=== PATIENT | male | born 1945 | race Caucasian/White ===

== ENCOUNTER 2018-03-15 16:34 | Emergency (ER) | payer MEDICARE ==
[2018-03-15 17:12] LABS: Hemoglobin 10.1 g/dL (14.0-18.0); Mean Corpuscular HGB CONC 33.5 g/dL (32.0-36.0); Mean Corpuscular Hemoglobin 31.9 pg (27.0-31.0); Mean Platelet Volume 5.9 fL (7.4-10.4); Platelet Count 418 thou/uL (130-400); RBC Distribution Width 14.1 % (11.5-14.5); Red Blood Cell (RBC) Count 3.17 mill/uL (4.70-6.10); White Blood Cell (WBC) Count 10.3 thou/uL (4.8-10.8)
[2018-03-15 17:32] LABS: Band 5 % (5-11); Lymphocytes 5 % (21-51); MDiff Complete? YES; Monocytes 3 % (0-10); Neutrophil 87 % (42-75); Ovalocytes SLIGHT = 2-5 cells (100X) (0-1/hpf); PLT Morphology Comment Appears Increased; Polychromasia SLIGHT = 2-3 cells (100X) (0-2/hpf); Schistocytes SLIGHT = 2-5 cells (100X) (0-1/hpf)
[2018-03-15 17:33] LABS: ALT (SGPT) 10 U/L (8-55); AST (SGOT) 26 U/L (5-34); Albumin 2.9 g/dL (3.4-4.8); Alkaline Phosphatase 169 U/L (40-150); Anion Gap 11 mmol/L (10-20); BUN (Urea Nitrogen) 15 mg/dL (8.4-25.7); Bilirubin, Total 0.3 mg/dL (0.2-1.2); CK (CPK) 39 U/L (30-200); Calc. Creatinine Clearance 0 mL/min (70-130); Calcium 8.8 mg/dL (7.8-10.44); Carbon Dioxide 25 mmol/L (23-31); Chloride 97 mmol/L (98-107); Estimated GFR-MDRD Greater than 90; Globulin 2.8 g/dL (2.4-3.5); Glucose 269 mg/dL (83-110); Potassium 4.3 mmol/L (3.5-5.1); Protein, Total 5.7 g/dL (5.8-8.1); Sodium 129 mmol/L (136-145)
[2018-03-15 17:38] LABS: CKMB 0.8 ng/mL (0-6.6); Troponin I Less than 0.010 ng/mL (< 0.028)
[2018-03-15 19:14] LABS: Bilirubin Negative (Negative); Blood, Urine Negative (Negative); Clarity CLEAR (Clear); Glucose, Urine (Dipstick) 250 mg/dL (Negative); Leukocyte Negative (Negative); Nitrite Negative (Negative); Protein, Urine (Dipstick) Negative (Neg-Trace); Specific Gravity, Urine 1.014 (1.002-1.036); Urobilinogen 0.2 mg/dL (0.2-1.0); pH, Urine 7.5 (5.0-9.0)
--- NOTE | 2018-03-15 19:14 | CT ---
CT BRAIN WITHOUT CONTRAST: HISTORY: Dizziness. COMPARISON: None available. FINDINGS: There are moderate microvascular ischemic changes, chronic. Mild ex vacuo dilatation of the extraaxi al CSF spaces and ventricular system. No acute hemorrhage or infarct. The calvarium is intact. The paranasal sinuses and mastoids are kelly ar. Old bilateral lacunar infarcts. IMPRESSION: Chronic changes. No acute intracranial hemorrhage. POS: [facility]
--- NOTE | 2018-03-15 19:17 | RAD ---
CHEST ONE VIEW: HISTORY: Dizziness. COMPARISON: None. FINDINGS: There is abnormal confluent opacity in the right upper lobe. The remainder of the lungs appears rela tively clear. The cardiac silhouette and mediastinal contour are within normal limits. IMPRESSION: Confluent opacity in the right upper lobe, concerning for possible infection. Followup after treatme nt is recommended. POS: [facility]
== END 2018-03-15 20:50 | disposition home or self-care (01) ==
LOC: ERS 16:34
DX: R42 Dizziness and giddiness (principal); I25.2 Old myocardial infarction; E10.9 Type 1 diabetes mellitus without complications; E78.5 Hyperlipidemia, unspecified; I10 Essential (primary) hypertension; F41.9 Anxiety disorder, unspecified; Z79.899 Other long term (current) drug therapy; Z79.4 Long term (current) use of insulin; Z79.82 Long term (current) use of aspirin
CPT/HCPCS: 36415; 70450; 71045; 80053; 81003; 82553; 83690; 84443; 84484; 85025; 93005; 94760

== ENCOUNTER 2018-03-24 12:54 | Outpatient (CLI) | payer MEDICARE ==
--- NOTE | 2018-03-24 15:35 | HP ---
DATE OF SERVICE: 03/24/2018 HISTORY OF PRESENT ILLNESS: Mr. Patrice Melo is a very pleasant 72-year-old gentleman accompan ied by his and daughter, who [facility] for evaluation of bilateral lower extr emity lymphedema. The patient states that he has had lymphedema for several years. He states that [facility] physicians have recommended compression garments. He states that he is "claustrophobic" and therefore is unable to tolerate compression garments or the application of wraps to his lower extremi ties. The patient was referred to the [facility] by Dr. Sotne. PAST MEDICAL HISTORY: 1. Hypertension. 2. Diabetes mellitus. 3. Coronary artery disease. 4. Osteoarthritis. PAST SURGICAL HISTORY: 1. Coronary artery bypass grafting x5. 2. Bilateral knee replacements. 3. Incision and drainage/wound VAC placement for left lower leg abscess. 4. Tonsillectomy. 5. Lipoma removal from back. 6. Multiple eye surgeries. 7. Oral surgeries. MEDICATIONS: 1. Enalapril. 2. Norvasc. 3. Finasteride. 4. Atorvastatin. 5. Tizanidine. 6. Aspirin. 7. Coenzyme Q10. 8. Multivitamin. 9. Ultram. 10. Aspercreme. 11. Humulin 70/30. 12. Regular insulin as needed. ALLERGIES: HEPARIN and BETA BLOCKERS. SOCIAL HISTORY: Negative for tobacco use. The patient admits to the social consumption of alcohol i n the past. FAMILY HISTORY: Significant for coronary artery disease. The patient states that his father was elle gnosed with coronary artery disease. Family history is also significant for diabetes mellitus. The patient states that he has multiple relatives on the maternal and paternal sides of his family who we re diagnosed with diabetes mellitus. PHYSICAL EXAMINATION: VITAL SIGNS: Temperature 98.1, pulse 98, respirations 19, blood pressure 138/76. Accu-Chek 132. GENERAL: A 72-year-old gentleman sitting on chair in examination room, in no acute distress. HEENT: Normocephalic, atraumatic. NECK: No nuchal rigidity. CHEST: Clear to auscultation. CARDIAC: Regular rate and rhythm. ABDOMEN: Soft. EXTREMITIES: No open wounds are present over the right or left lower legs. A dorsalis pedis pulse i s palpable on the left. A dorsalis pedis pulse is not palpable on the right. No cellulitis of the r ight or left lower extremity is present. Erythema of the right and left lower legs is present and ap pears to be secondary to stasis changes as opposed to an infectious process. No maceration of the sk in of the right or left lower leg is present. Lymphedema of the right and left lower extremities is present. Circumferences of the right lower extremity at the ankle, calf and knee are 26 cm, 39.50 cm , and 38 cm. Circumferences of the left lower extremity at the ankle, calf and knee are 28 cm, 41 cm , and 41 cm. ASSESSMENT AND PLAN: 1. Lymphedema tarda. Arrangements will be made for the initiation of in-home lymphedema therapy. I will see Mr. Melo again in 4 weeks. At this time, arrangements will continue for the acquisit ion of a pneumatic pump. The patient and his family understand and are in agreement with the [facility] treatment plan. 2. Hypertension. 3. Diabetes mellitus. The patient's Accu-Chek in clinic today is 132. 4. Coronary artery disease. 5. Arthritis.
== END 2018-03-24 12:55 | disposition home or self-care (01) ==
LOC: WCC 12:54
PROVIDERS: ATTEND Family Medicine
DX: I89.0 Lymphedema, not elsewhere classified (principal); E11.9 Type 2 diabetes mellitus without complications; I25.10 Atherosclerotic heart disease of native coronary artery without angina pectoris; M19.90 Unspecified osteoarthritis, unspecified site; I10 Essential (primary) hypertension
CPT/HCPCS: 97602; 99203; G0463

== ENCOUNTER 2018-05-05 16:41 | Inpatient (IN) | payer MEDICARE ==
[~2018-05-05 16:41] MED LIST: ISOVUE-370 76%-LOCM 1 ML ONE
[2018-05-05 17:58] LABS: #Monocytes 1.2 thou/uL (0.11-0.59); #Neutrophils 11.4 thou/uL (1.40-6.50); %Basophils 0.2 % (0.0-1.0); %Eosinophils 0.2 % (0.0-10.0); %Lymphocytes 7.6 % (21.0-51.0); %Monocytes 8.6 % (0.0-10.0); %Neutrophils 83.5 % (42.0-75.0); Hemoglobin 10.3 g/dL (14.0-18.0); Mean Corpuscular HGB CONC 33.2 g/dL (32.0-36.0); Mean Corpuscular Hemoglobin 32.5 pg (27.0-31.0); Mean Corpuscular Volume 97.9 fL (78.0-98.0); Mean Platelet Volume 6.2 fL (7.4-10.4); Platelet Count 441 thou/uL (130-400); RBC Distribution Width 14.9 % (11.5-14.5); Red Blood Cell (RBC) Count 3.16 mill/uL (4.70-6.10); White Blood Cell (WBC) Count 13.6 thou/uL (4.8-10.8)
[2018-05-05 18:23] LABS: ALT (SGPT) 11 U/L (8-55); AST (SGOT) 12 U/L (5-34); Albumin 2.6 g/dL (3.4-4.8); Alkaline Phosphatase 174 U/L (40-150); Anion Gap 11 mmol/L (10-20); BUN (Urea Nitrogen) 19 mg/dL (8.4-25.7); Bilirubin, Total 0.6 mg/dL (0.2-1.2); Calc. Creatinine Clearance 0 mL/min (70-130); Calcium 8.5 mg/dL (7.8-10.44); Carbon Dioxide 23 mmol/L (23-31); Chloride 100 mmol/L (98-107); Estimated GFR-MDRD Greater than 90; Globulin 2.6 g/dL (2.4-3.5); Glucose 146 mg/dL (83-110); Lipase Less than 4 U/L (8-78); Magnesium 1.6 mg/dL (1.6-2.6); Potassium 3.4 mmol/L (3.5-5.1); Protein, Total 5.2 g/dL (5.8-8.1); Sodium 131 mmol/L (136-145)
[2018-05-05] MEDS ORDERED: Ketorolac Tromethamine 30 MG/ML VIAL ONE (19:51)
--- NOTE | 2018-05-05 19:56 | CT ---
ABDOMEN CT WITH CONTRAST PELVIC CT WITH CONTRAST 05/05/18 HISTORY: Abdominal pain. Extensive issues with the colon. Colon is no longer operable. Patient has been recomm ended to be placed on hospice. COMPARISON: None. TECHNIQUE: An abdomen and pelvic CT are performed with IV contrast. Coronal reformatted images are submitted for interpretation. FINDINGS: ABDOMEN CT: 1 x 0.8 cm nodule in the middle lobe and 0.7 x 0.6 and 0.5 x 0.8 cm in the left lower lobe. Heart size is normal. No pericardial fluid. The descending thoracic aorta and abdominal aorta demonst rate atherosclerosis. No aneurysm. No periaortic fat stranding. Intra and extrahepatic portal vein is patent. Unremarkable gallbladder. Symmetric attenuation of psoas muscles. Symmetric enhancement of the kidneys. No obstructive uropathy . No gastrohepatic, retrocrural or periportal lymphadenopathy. The liver, spleen, pancreas, and left adrenal gland are unremarkable. There appears to be a nodule as sociated with the right adrenal gland measuring 1.2 x 1.1 cm. Limited evaluation of the alimentary canal due to lack of oral contrast. Hyperdense material in the c olon is nonspecific and may represent previously ingested material. Grossly unremarkable gastric muco sa and duodenum. Multiple small bowel loops are identified. Some of which have a slightly prominent d iameter. Significance is uncertain in the setting of extensive fecal material in the colon. Partial o bstructive process cannot be excluded. Ileocecal junction is grossly unremarkable. There is extensive fecal material and hyperdensity in the cecum, ascending colon, proximal transverse colon. there is a ir in what appears to be the nondependent portion of the colon. Possibility of pneumatosis involving the cecum cannot be completely excluded. There is hyperdense material in the transverse colon. There is mucosal irregularity involving the distal descending colon and proximal sigmoid colon suggesting p ossible malignancy with an intraluminal extension. There appears to be associated obstruction given t hat the colon proximal to this is somewhat prominent and distal to this area is decompressed. Additio nal abnormal soft tissue densities appear to be present in the sigmoid colon and rectum. Some of thes e densities may represent fecal material. Diffuse edema of the soft tissues is noted. Mildly enlarged retroperitoneal (aortocaval) lymph nodes are suggested and are nonspecific. PELVIC CT: No mass, lymphadenopathy, free air or free fluid. Unremarkable urinary bladder. No lytic or blastic l esions in the osseous structures. IMPRESSION: 1. Possible intraluminal mass/tumor involving the distal descending colon and proximal sigmoid c olon with associated obstruction. 2. Questionable pneumatosis involving the cecum. 3. Multiple lung parenchymal lesions worrisome for metastases. Possible right adrenal metastasis . Results of the study discussed with Dr. Turner 05/05/18 at 6:46 p.m. Code CR POS: [facility]
[2018-05-06] MEDS ORDERED: Sodium Chloride 0.9% 1,000 ML IV SCH (00:08)
[2018-05-06] MEDS ORDERED: Ondansetron ODT 4 MG TAB SL PRN (00:08)
[2018-05-06] MEDS ORDERED: traMADol HCl 50 MG TAB PO PRN (00:08)
[2018-05-06] MEDS ORDERED: Ondansetron HCl/PF 4 MG/2 ML Vial IVP PRN ×2 (00:08→04:01)
[2018-05-06] MEDS ORDERED: Acetaminophen 325 MG TAB PO PRN (00:08)
[2018-05-06 00:13] VITALS: BMI 34.2
[2018-05-06] MEDS ORDERED: Nitroglycerin 0.4 MG TAB (25 Tab Bottle) SL PRN (04:01)
[2018-05-06] MEDS ORDERED: Lorazepam 1 MG TAB PO PRN (04:01)
[2018-05-06] MEDS ORDERED: Mag-Al 1200 mg/1200 mg/30 ML UDCUP PO PRN (04:01)
[2018-05-06] MEDS ORDERED: Senokot 8.6 MG TAB PO PRN (04:01)
[2018-05-06] MEDS ORDERED: traZODone HCl 50 MG TAB PO PRN (04:01)
[2018-05-06] MEDS ORDERED: Bisacodyl 5 MG TAB PO PRN (04:01)
[2018-05-06] MEDS ORDERED: Benzonatate 100 MG CAP PO PRN (04:01)
[2018-05-06] MEDS ORDERED: cloNIDine 0.1 MG TAB PO PRN (04:01)
[2018-05-06] MEDS ORDERED: Calcium Carbonate 500 MG ChewTAB PO PRN (04:01)
[2018-05-06] MEDS ORDERED: Loratadine 10 MG TAB PO PRN (04:01)
[2018-05-06] MEDS ORDERED: Diabetic Tussin 200 MG/10 ML UDCUP PO PRN (04:01)
[2018-05-06] MEDS ORDERED: hydrALAZINE 20 MG/ML VIAL SLOW IVP PRN (04:01)
[2018-05-06] MEDS ORDERED: Dextrose 50% Abboject 50 ML SYRINGE SLOW IVP PRN (04:06)
[2018-05-06] MEDS ORDERED: Dextrose 5% in Water 1,000 ML IV PRN (04:06)
[2018-05-06] MEDS ORDERED: Dextrose 5 %-0.45 % NaCl 1,000 ML IV SCH (05:00)
[2018-05-06 05:24] LABS: #Eosinphils 0.1 thou/uL (0.0-0.7); #Lymphocytes 1.1 thou/uL (1.20-3.40); %Eosinophils 0.7 % (0.0-10.0); %Lymphocytes 11.1 % (21.0-51.0); %Monocytes 9.5 % (0.0-10.0); %Neutrophils 78.7 % (42.0-75.0); Hemoglobin 8.7 g/dL (14.0-18.0); Mean Corpuscular HGB CONC 33.5 g/dL (32.0-36.0); Mean Corpuscular Volume 98.5 fL (78.0-98.0); Mean Platelet Volume 6.4 fL (7.4-10.4); Platelet Count 350 thou/uL (130-400); Red Blood Cell (RBC) Count 2.64 mill/uL (4.70-6.10); White Blood Cell (WBC) Count 10.2 thou/uL (4.8-10.8)
[2018-05-06 05:34] LABS: Anion Gap 13 mmol/L (10-20); BUN (Urea Nitrogen) 18 mg/dL (8.4-25.7); Calc. Creatinine Clearance 116 mL/min (70-130); Calcium 7.9 mg/dL (7.8-10.44); Carbon Dioxide 22 mmol/L (23-31); Chloride 102 mmol/L (98-107); Estimated GFR-MDRD Greater than 90; Glucose 144 mg/dL (83-110); Sodium 134 mmol/L (136-145)
[2018-05-06 05:39] LABS: Potassium 2.9 mmol/L (3.5-5.1)
--- NOTE | 2018-05-06 05:55 | HP ---
DATE OF ADMISSION: 05/06/2018 PRIMARY CARE PHYSICIAN: Dr. Nereyda Stone. CHIEF COMPLAINT: Abdominal distention, diarrhea. HISTORY OF PRESENTING ILLNESS: Mr. Melo is a 72-year-old male with past medical history of elle betes mellitus type 1, history of CVA, currently bed bound as well as history of coronary artery dise ase, dyslipidemia, and hypertension who presented to the emergency room with above-mentioned complain t. History is mainly obtained by the patient himself. He reports that he has chronic diarrhea for one year or more. He reports that he has had multiple co lonoscopies done in various hospitals out of town. Most recently, he was admitted in [place]. He has history of small-bowel obstruction. He reports that he was told that his colon is not worki ng and he was advised to be on hospice. The history is somewhat sketchy in those times. He does not have a data integration architect locally. Per reports, significant weight loss over the course of last 6 m onths. He reports excessive gas and stomach distention. He reports poor appetite. He denies any dy suria, frequency, urgency, or hematuria. He denies any blood in his stools or any black colored stoo ls. He presented to the ER with complaining of some low-grade of lower abdominal pain. Upon presentation , he was tachycardic to 104, otherwise hemodynamically stable. He underwent a CT scan of the abdomen and pelvis, which showed a possible sigmoid colon mass with possible adrenal metastasis and lung met astasis concerning for malignant lesion. He is now being admitted for further evaluation and care. He was given some pain medications and IV fluids in the emergency room. PAST MEDICAL HISTORY: 1. Diabetes mellitus, type 1. 2. History of cerebrovascular accident with bed-bound status. 3. Coronary artery disease and myocardial infarction. 4. Dyslipidemia. 5. Hypertension. 6. Small-bowel obstruction. 7. Chronic diarrhea. 8. Chronic knee pain. 9. Gastroesophageal reflux disease. PAST SURGICAL HISTORY: 1. Coronary artery bypass graft. 2. Bilateral total knee replacement. 3. Lipoma removal from back. 4. Laser surgery for eyes and cataract surgery. PSYCHIATRIC HISTORY: Anxiety. SOCIAL HISTORY: He has no history of drug, tobacco, or alcohol abuse. He lives at home with his wif e who is a primary care provider. CODE STATUS: DO NOT RESUSCITATE, discussed with patient in detail. FAMILY HISTORY: No significant family history of premature coronary artery disease or stroke. REVIEW OF SYSTEMS: A 12-point review of systems was done. It is negative except for those mentioned in the history and physical. LABORATORY DATA: CBC shows WBCs at 13.6 with 83% neutrophils, hemoglobin 10.3. Serum chemistry show s sodium of 131, potassium 3.4, blood sugar 146, alkaline phosphatase 174, total serum protein 5.2. Lipase less than 4. CT scan of the abdomen and pelvis shows possible intraluminal mass/tumor in the distal descending colon and proximal sigmoid colon with associated obstruction. There is questionabl e pneumatosis involving the cecum and multiple lung parenchymal lesions worrisome for metastasis and possible right adrenal metastasis. PHYSICAL EXAMINATION: VITAL SIGNS: Most recent vital signs temperature 98.9, pulse of 95, respirations 18, saturating 97% on room air, blood pressure 117/56. GENERAL: No acute distress. He does appear somewhat malnourished, but otherwise no acute distress. HEENT: Mucous membrane is slightly dry. No oropharyngeal exudate or erythema. Head is normocephali c, atraumatic. Pupils equal and reactive to light and accommodation. Extraocular movement intact. NECK: Supple without any lymphadenopathy, JVD, or bruit. CHEST: Clear to auscultation without any wheezing, rales, or rhonchi. CARDIOVASCULAR: Rate and rhythm is regular without any murmurs, rubs, or gallops. ABDOMEN: Mildly distended and loud bowel sounds with some tenderness in the left lower quadrant. EXTREMITIES: Show chronic extensive lower extremity edema and chronic venostasis changes and lymphed jessica. PSYCHIATRIC: Normal affect. NEUROLOGIC: Nonfocal. IMPRESSION AND PLAN: 1. Abdominal pain and chronic diarrhea. Most likely related to his history of multiple colonic surg eries and seems chronic rather than acute in nature. However, the patient's stool culture sent by [facility] emergency room physician did test positive for Campylobacter. At this time, we will treat him with empiric IV antibiotic with levofloxacin and Flagyl and start him on IV fluids. We will also order F lorastor for him for now. We will also send a Clostridium difficile testing. 2. Sigmoid mass. Possibly carcinoma. We will request Gastroenterology consultation for possible co lonoscopy and/or sigmoidoscopy for biopsy and tissue sample. There is also a question of possible ob struction. The patient will be kept n.p.o. for now and we will continue him on IV fluids. 3. Hypokalemia. We will replace and recheck as needed. 4. Leukocytosis. The patient most likely has abdominal infection. Antibiotics as above. 5. Anemia seems to be chronic, though his baseline is unknown. At this time, it is normocytic in na ture. Suspect chronic losses from either malabsorption through the GI tract or nutritional deficienc ies. 6. History of coronary artery disease, currently stable. We will restart his aspirin and statin as well as his LUDMILA inhibitor in the form of enalapril. 7. Diabetes mellitus, type 1. The patient has hypertension to go into diabetic ketoacidosis. We wi ll put him on scheduled insulin and to prevent hypoglycemia. We will start him on dextrose with norm al saline at this time. Patient is n.p.o., so hypoglycemic protocol will be instituted as well. 8. CODE STATUS: DO NOT RESUSCITATE discussed with the patient. We will consult palliative care [facility] for discussion of long-term goals of care. 9. Deep venous thrombosis and gastrointestinal prophylaxis. DISPOSITION: Mr. Melo is currently stable and is being admitted for further evaluation of the sigmoid mass on chronic symptoms as well as treatment of possible bacterial gastroenteritis. Estimat ed length of stay at this time is at least 2-3 midnights. Further management will depend upon his cl inical course.
[2018-05-06] MEDS ORDERED: metroNIDAZOLE 500 MG in Premix Bag 1 BAG IVPB SCH (06:00)
[2018-05-06] MEDS: Potassium Chloride 40 MEQ in Sodium Chloride 0.9% 250 ML 250 ML IVPB SCH ×2 (06:20→11:54)
[2018-05-06] MEDS ORDERED: Insulin NPH/Reg Insulin Hm 300 UNITS/3 ML VIAL SC SCH (07:30)
[2018-05-06] MEDS: Amlodipine 10 MG TAB PO SCH (08:07)
[2018-05-06] MEDS: Saccharomyces boulardii 250 MG CAP PO SCH (08:08)
[2018-05-06] MEDS: Atorvastatin Calcium 40 MG TAB PO SCH (08:08)
[2018-05-06] MEDS: Aspirin 81 mg Enteric Coated Tablet PO SCH (08:08)
[2018-05-06] MEDS: HYDROcodone/Acetaminophen 10/325 mg Tablet PO SCH ×2 (08:08→20:57)
[2018-05-06] MEDS: Finasteride 5 MG TAB PO SCH (08:08)
[2018-05-06] MEDS: Multivitamin W/ Minerals 1 TAB PO SCH (08:08)
[2018-05-06] MEDS: tiZANidine HCl 4 MG TAB PO SCH ×2 (08:09→20:57)
[2018-05-06] MEDS: Ubidecarenone 50 MG CAP PO SCH (08:09)
[2018-05-06] MEDS ORDERED: Diphenoxylate HCl/Atropine Tablet PO SCH (09:00)
[2018-05-06] MEDS: Famotidine/PF 20 mg/2ml Vial SLOW IVP SCH ×2 (09:08→20:58)
--- NOTE | 2018-05-06 09:26 | PDOC.EVN ---
Event Note - Event Note Event Note: Patient has cdiff and campylobacter. Will make contact precaution, start vanco po and Azithromycin to cover both C.diff and Campylobacter. will get ID on the case.
[2018-05-06] MEDS ORDERED: Azithromycin 500 MG in Sodium Chloride 0.9% 250 ML 250 ML IVPB SCH (10:00)
[2018-05-06 10:18] LABS: Reticulocyte Count 2.9 % (0.5-1.5)
[2018-05-06] MEDS: Insulin NPH/Reg Insulin Hm 300 UNITS/3 ML VIAL SC SCH ×3 (10:35→17:06)
[2018-05-06 11:21] LABS: Folate (Folic Acid) 12.7 ng/mL (7.0-31.4)
[2018-05-06] MEDS ORDERED: GoLYTELY 4,000 ml Bottle PO SCH (16:30)
[2018-05-06] MEDS: D5 0.9% NS w/ 20 mEq KCl 1,000 ML IV SCH (17:10)
--- NOTE | 2018-05-06 20:15 | CON ---
DATE OF CONSULTATION: 05/06/2018 REASON FOR CONSULTATION: Diarrhea, abnormalities in imaging studies of chest and abdomen. HISTORY OF PRESENT ILLNESS: A 72-year-old patient who is originally from [place], [place] and re portedly had to move to [place] with family because he did not have financial means to sustain himself and depends on relatives and basically moves around whenever the relatives moves for job opp ortunity reasons. Initially, about 4 years ago, went to [place] and according to , the pa tient developed then progressively worsening functional impairment associated with his ischemic cardi omyopathy as well as chronic osteoarthrosis, particularly in the knees. The patient has a history of bilateral knee replacements and apparently over the past few months to years, the right knee has dev eloped progressively worsening pain and progressively worsening range of motion, which has led to mar ked reduction in mobility. Concomitantly, over the past at least a year and a half, the patient has noticed chronic diarrhea, flatus, and episodes of abdominal distention. Reportedly had multiple colo noscopies with polypectomies both in [place] as well as in [place]. He states that in [facility] he did not have much in terms of gastrointestinal symptoms and that the colonoscopies had been c arried out for screening reasons. In [place], that is where he developed the symptoms of diar emily, sometimes with bloating and flatulence with then complications including one reported episode o f small-bowel obstruction. He also has a history of some form of chronic right lung abnormality in t he upper lobes, which has been evaluated with bronchoscopy in [place], and they told him that he wa s having aspiration episodes. He does not recall if he had a workup for tuberculosis or fungal illne sses. Here, he moved to this area from [facility] for the same reason as before, where it had been state d specifically the relative moved to the area and he is the only source of financial income. He came to the emergency room in March this year because of lightheadedness, which presented 5 hours before a dmission to the emergency room. He was found to have hypotension with systolic 70s and diastolic in the 40s, and a blood sugar of 78. On arrival, his systolic was 120-150. Reportedly, he was having b alance problems for 4-5 months before arrival in the emergency room and had a history of CVA in 1996. The evaluation at this time in the emergency room demonstrated a blood pressure 140/70, pulse 107, temperature 98.7, O2 sat 97%. The exam was pertinent for poor dentition. Lungs with normal breath s ounds. Heart examination appeared normal. Bowel sounds were hyperactive. EKG showed sinus tachycar elle and some Q-waves. The diagnosis was lightheadedness. He was discharged home on the same medicat ions as before. He had a head CT, which showed no acute findings. The chest showed patchy infiltrat e in the right upper lobe and then this time, he presents with worsening diarrhea. According to the , they decided to [facility] to come and evaluate the patient. The nurse advised them to bring him to the emergency room for evaluation. Also, there is a reported desire on the par t of the patient and the family to be admitted to hospice care and that may had been another reason f or his admission. There had been no headaches. No change in visual symptoms, sore throat, odynophag ia, dysphagia. No vomiting or aspiration. No chest pain or dyspnea. He has chronic diarrhea and ab dominal cramps, some abdominal distention. No bleeding. No genitourinary symptoms. Chronic pain in right knee with marked mobility impairment and range of motion impairment in right knee. PAST MEDICAL HISTORY: Prior CVA, coronary artery disease, myocardial infarction, bypass graft surger y, osteoarthrosis, bilateral knee replacements with chronic impairment of the right knee replacement, and chronic colon issues including multiple colonoscopies and polypectomies, chronic diarrhea of unc ertain etiology with unknown prior workup, chronic right lung infiltrate with prior bronchoscopy, and a diagnosis of aspiration. PAST SURGICAL HISTORY: Also includes lipoma removal, cataract surgery. ALLERGIES: BETA BLOCKERS, HEPARIN. MEDICATIONS AT HOME: Latanoprost, insulin, nystatin, tizanidine, Norvasc, Lomotil, atorvastatin, asp irin, enalapril, finasteride, tramadol. PHYSICAL EXAMINATION: VITAL SIGNS: On arrival, his BP 128/55, pulse 104. After admission, he has remained afebrile. BP 1 02/56, pulse 79, respirations 16, O2 sat 96%. 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 He has bilateral heel deep tissue injuries with pressure ulcerations, w hich according to the developed recently. The patient has a peripheral IV access and is voiding in the urinal. His weight on arrival was 181 pounds. There is no lymphadenopathy. HEENT: The ocular movements are conjugate. Sclerae are white. Conjunctivae are pink. Nasal passag es are patent. Oral cavity with quite a few teeth in place with quite a bit of decay, some gum disea se. NECK: Supple. No jugular vein distention or carotid bruits. LUNGS: With symmetric air entry. HEART: S1, S2 regular rate with a soft aortic murmur. ABDOMEN: Soft with moderate distention. No tenderness. No bladder distention. Bowel sounds are so mewhat increased. EXTREMITIES: The patient has flexion deformity of the right knee with no range of motion because of pain. He did not allow me to palpate the knee because of pain induced by the exam. The left knee ngo s better range of motion and no tenderness on palpation. Dorsalis pedis are difficult to evaluate. The femoral pulse is faintly palpable as well as posterior tibialis. There is on onychodystrophy not ed in all toenails. He is able to faintly wiggle his toes on command. NEUROLOGIC: He is oriented, follows commands, and the memory appears to be preserved. His cognitive function appears to be intact. LABORATORY DATA: White cell count 13.6, hemoglobin 10.3, platelets 441 with 82% neutrophils. The ch emistry analysis showed iron 28, ferritin 193, alkaline phosphatase 174, albumin 2.6. Transaminases normal. Bilirubin 0.6. Lipase is less than 4. We have a urinalysis from March, which showed negativ e nitrite, blood, bilirubin, and urobilinogen. Protein was negative as well. A C. difficile antigen and toxin test demonstrated positive antigen, although toxin was not detected by PCR. The Campyloba cter antigen assay was positive and Shiga toxin negative. The patient had an abdomen and pelvis CT, this was with contrast study. There was a 1 x 0.8 cm nodule in middle lobe and 0.7, 0.6, 0.5, and 0. 8 nodules in the left lower lobe. Heart size is normal. No pericardial fluid. The liver, spleen, a nd pancreas were not remarkable. No oral contrast was administered, so the evaluation of the GI trac t is limited. There was evidence of hyperdense material in the colon, which is nonspecific. Multipl e small bowel loops identified. There was extensive fecal material in the colon with partial obstruc tive process not excluded. Extensive fecal material and hyperdensity in the cecum, ascending colon, and proximal transverse colon. There is possibility of pneumatosis in the cecum. There was a mucosa l irregularity in the distal descending colon and proximal sigmoid colon with suggestion of possible malignancy and intraluminal extension. The pelvic CT showed an unremarkable urinary bladder. No jared stic or lytic lesions in osseous structures. ASSESSMENT: 1. Ischemic cardiomyopathy. 2. Prior cerebrovascular accidents. 3. Severe osteoarthrosis with mobility impairment. 4. Chronic lymphedema with stasis dermatitis in lower extremities. 5. Pressure injury to the right and left heel area due to mobility impairment. 6. Chronic gastrointestinal problems associated with possible motility impairment in the colon, cons tipation mixed with paradoxical diarrhea. Question of malignancy in view of the findings in the imag ing study. 7. Chronic lung changes. DISCUSSION: The Clostridium difficile test shows colonization without actual production of toxin, so I do not think that the diarrhea can be ascribed to Clostridium difficile colitis. Campylobacter an tigen test frequently is false positive and one should be careful in establishing a relationship betw een the results of the patient's Campylobacter tests and his symptoms as well, particularly in view o f the fact that he has had this diarrhea for more than a year and a half. It seems like he does have a motility impairment, may have some element of malabsorption. The issue of malignancy evidently ne eds to be clarified. At this point, the single step that is of the highest importance in clarifying further the patient's issues is to obtain the results of prior evaluations that had been done in [facility] as well as in [place] before we proceed with any further testing at this point in time. Regarding the request for hospice, evidently we will need a diagnosis before the patient can be refe rred to hospice care, so that falls back into the need to obtain records. If the records did not dem onstrate any recent evaluation and/or any specific diagnosis that would justify hospice, for example a malignancy, then one would have to consider repeat endoscopy to evaluate those areas of colon stric ture identified in the CT scan. Regarding the lung lesions, those also need to be evaluated in terms of the prior findings since he had a bronchoscopy study done, and comparison of the imaging findings with prior imaging studies.
[2018-05-06] MEDS: traMADol HCl 50 MG TAB PO PRN (21:04)
--- NOTE | 2018-05-07 02:25 | CON ---
DATE OF CONSULTATION: 05/06/2018 REASON FOR CONSULTATION: Diarrhea, abnormal CAT scan. HISTORY OF PRESENT ILLNESS: Mr. Melo is a 72-year-old gentleman who previously has received ca re in [place], [place] and [place], [place]. He reports he has been having diarrhea for abou t two years now or year and a half. No one has been able to find out why. This seems it may be 4 or 5 years ago, he had a couple of colonoscopies at [facility] or in other facilities in [place] to r emove polyps. At that time, he was having no diarrhea. More recently, he was in [facility] as about 2-3 years ago, he had 2 colonoscopies and polyps removed, but the patient reports the colono scopies were unable to be completed secondary to the patient's difficulty with breathing and Anesthes ia not feeling the patient could remain sedated. Now, he reports he has been having diarrhea for abo ut a year and a half, but he was not having diarrhea when he had his last colonoscopy. At his last h ospitalization in [facility], he states it was last June for what was reported to be a partial obstruc tion in his transverse colon. He stated this got better on its own. Presently, the patient came to the emergency room for worsening diarrhea and decreased oral intake. Apparently, his home health nurse felt he should come to the hospital. The diarrhea has not been no worse in the past years or so. He states he has some vague abdominal discomfort across the whole bot pia of the abdomen. The patient reports he has runny diarrhea about 7 or 8 times per day. Again, he states no one has cleared on why he has that. He has seen Dr. Stone recently as a new physician a nd he was given Imodium. I talked about his previous colonoscopies. His notes that he had to h ave the bowel prep and then 7 or 8 enemas to get cleaned out. Presently, the patient denies any pain . He wants to know why he is having diarrhea. He also notes that he has no bleeding except for some times with hemorrhoids. Also, he notes that he does not have an appetite and really does not have a taste for any food at this point in time. The patient states he has lost weight recently, but he is unsure how much. PAST MEDICAL HISTORY: 1. Type 1 diabetes. 2. CVA with multiple TIAs in the past. He is bedbound now for about the past 6 months, coronary art letty disease, previous myocardial infarction and bypass, dyslipidemia, hypertension, small bowel obstr uction in the past or possible colon obstruction, unclear which. 3. Chronic diarrhea. 4. Chronic knee pain. 5. Reflux. PAST SURGICAL HISTORY: Bypass coronary, bilateral total knee replacement, lipoma, remarkable for Las ik surgery for eyes and cataracts. PSYCHIATRIC HISTORY: Apparently anxiety. SOCIAL HISTORY: No history of drug use, tobacco use or alcohol abuse. Lives at home with his _ ____ to this region. FAMILY HISTORY: Noncontributory. REVIEW OF SYSTEMS: As per HPI. ALLERGIES: BETA BLOCKERS and HEPARIN. CURRENT MEDICATIONS: Presently at home, lansoprazole, Novolin 70/30, Novolin Regular, Nystatin, tiza nidine, amlodipine, Lomotil, atorvastatin, aspirin, enalapril, finasteride, tramadol. PRESENT MEDICATIONS: During the hospital, Maalox, Norvasc, Lipitor, azithromycin, Tessalon, Dulcolax , Tums, Catapres, CoQ10, D5 75 an hour, Lomotil, Vasotec, Pepcid, Proscar, Apresoline, [place], Humulin , Theragran M, Claritin, Ativan, morphine, nitroglycerin, Florastor, tramadol, tizanidine, Desyrel, a nd vancomycin. PHYSICAL EXAMINATION: VITAL SIGNS: Temperature is 99.3, pulse 79, blood pressure 102/56. GENERAL: He is a very ill-appearing male resting in bed. HEENT: Oropharynx without lesions. Some teeth are missing. NECK: Supple, without adenopathy. LUNGS: Clear. HEART: Regular. ABDOMEN: Protuberant. It is nontender. There is no rebound or guarding. There is a midline ventra l hernia and diastasis recti. There is no incarcerated bowel. Bowel sounds are positive. RECTAL: Reveals hemorrhoids internally. There is some fullness, but no overt masses palpated, it is comfortable with the patient. Limits ability to complete the exam, there was noted some impaction. Stool was brown. LABORATORY STUDIES: White count 10.2, hemoglobin is 8.7, MCV is 93. Hemoglobin was 10.3 last night. Platelet count is down from 441 to 350. Retic count is 2.9. Sodium 134, potassium 3.4 and 2.9 thi s morning to be replaced, chloride 100, bicarbonate 23, BUN 19, creatinine 0.7, glucose 147, alkaline phosphatase 174, AST and ALT are 12 and 11. Serum protein is 5.2, albumin is 2.6. TSH 1.07. Magne sium is 1.5, is being replaced. Microbiology: The patient had stool for C. difficile that was posit maria l for antigen negative for toxin. Stool Campylobacter antigen was positive. Shiga toxin negative. CAT scan of abdomen and pelvis was performed last night. I reviewed these films with the radiologi st. There is nodule associated with right adrenal gland. There are a couple of 1 cm to 0.8-0.7 cm l ymph nodes in the lung, hyperdense material in the right colon with some small bowel loops that are m ildly prominent, stool distended right colon. Extensive fecal material in the right colon. There is air in the transverse colon. We have some concern that there could be possibly some pneumatosis in the cecum. In the junction of distal colon and proximal sigmoid, there is an irregular mucosal densi ty, possibly obstructing mass concerning for, that does not appear to be a volvulus air. Otherwise, there is concern for possible metastatic disease in the lung and also the right adrenal gland. ASSESSMENT: 1. Chronic diarrhea. It seems really in talking with the patient and his that this may be over flow diarrhea from constipation even when he has had colonoscopies, they had a difficult time getting his bowels cleaned. He does have a Clostridium difficile toxin positive now, the antigens negative. He shows no signs of sepsis or infection. I do not think he has Clostridium difficile colitis, christopher s far positive Campylobacter. Again, I do not see an acute diarrheal illness here. This is probably a false positive, I would wait for stool culture and I get a fecal leukocyte test. 2. With regard to the possible pneumatosis in the cecal area of the colon, I will review this with adriel alvarez radiologist. The patient does not have a surgical appearing abdomen, but he is chronically ill, m alnourished. Surgery needs to look at this to make sure that he is at risk for ischemia from over-di stention of the cecal area of the colon and I have recommended the Hospitalist they get a surgical co nsultation of colon this afternoon. 3. With regard to the possible obstruction in the sigmoid colon, I think that is real and with the l esions in the lung and the adrenal gland that it makes even more concerned. The patient states he ngo s not had any cancers in the past and he has had colonoscopies, most recent being about 5 years ago, but really that it is unclear what would happen if those seems to he was not able to have even a full exam secondary to respiratory issues with sedation. The differential diagnosis could include mucosal obstruction from malignancy, partial volvulus or even just the appearance obstruction based o n peristalsing on the CAT scan. 3. Electrolyte abnormalities. 4. Diabetes, unclear how well controlled that is. 5. Anemia, chronic, with a normal B12, iron of 28, ferritin of 190. RECOMMENDATIONS: 1. Surgical consultation. 2. Slow prep for colonoscopy. If patient is unable to tolerate a prep, we may have to just perform a sigmoidoscopy to look at the cecal lesion. 3. I want the surgeon to look at him in terms of the question of pneumatosis in the right colon that can become a surgical emergency and obviate any need or move towards a colonoscopy. 4. I would check his stools for fecal lactoferrin and specific culture for Campylobacter not treated with antibiotics at this point in time if his diarrhea is chronic and has not changed acutely, does not appear to be infectious.
[2018-05-07] MEDS: D5 0.9% NS w/ 20 mEq KCl 1,000 ML IV SCH ×3 (02:43→20:31)
[2018-05-07 05:19] LABS: #Eosinphils 0.1 thou/uL (0.0-0.7); #Neutrophils 9.8 thou/uL (1.40-6.50); %Basophils 0.1 % (0.0-1.0); %Eosinophils 1.1 % (0.0-10.0); %Lymphocytes 8.5 % (21.0-51.0); %Monocytes 8.6 % (0.0-10.0); %Neutrophils 81.8 % (42.0-75.0); Hemoglobin 9.1 g/dL (14.0-18.0); Mean Corpuscular HGB CONC 32.2 g/dL (32.0-36.0); Mean Corpuscular Hemoglobin 31.8 pg (27.0-31.0); Mean Corpuscular Volume 98.9 fL (78.0-98.0); Mean Platelet Volume 7.6 fL (7.4-10.4); Platelet Count 312 thou/uL (130-400); Red Blood Cell (RBC) Count 2.87 mill/uL (4.70-6.10)
[2018-05-07 05:46] LABS: Anion Gap 12 mmol/L (10-20); BUN (Urea Nitrogen) 13 mg/dL (8.4-25.7); Calc. Creatinine Clearance 141 mL/min (70-130); Calcium 7.5 mg/dL (7.8-10.44); Carbon Dioxide 22 mmol/L (23-31); Chloride 107 mmol/L (98-107); Estimated GFR-MDRD Greater than 90; Glucose 143 mg/dL (83-110); Magnesium 1.3 mg/dL (1.6-2.6); Sodium 138 mmol/L (136-145)
[2018-05-07 05:48] LABS: Potassium 2.9 mmol/L (3.5-5.1)
[2018-05-07 07:38] LABS: Magnesium 1.3 mg/dL (1.6-2.6)
[2018-05-07] MEDS: Insulin NPH/Reg Insulin Hm 300 UNITS/3 ML VIAL SC SCH ×3 (07:48→16:49)
[2018-05-07] MEDS: Famotidine/PF 20 mg/2ml Vial SLOW IVP SCH ×2 (07:49→20:26)
[2018-05-07] MEDS: Amlodipine 10 MG TAB PO SCH (07:50)
[2018-05-07] MEDS: tiZANidine HCl 4 MG TAB PO SCH ×2 (07:51→20:26)
[2018-05-07] MEDS: Multivitamin W/ Minerals 1 TAB PO SCH (07:52)
[2018-05-07] MEDS: Saccharomyces boulardii 250 MG CAP PO SCH (07:52)
[2018-05-07] MEDS: Atorvastatin Calcium 40 MG TAB PO SCH (07:52)
[2018-05-07] MEDS: traMADol HCl 50 MG TAB PO PRN ×2 (07:59→14:41)
[2018-05-07] MEDS: Ubidecarenone 50 MG CAP PO SCH (07:59)
[2018-05-07] MEDS ORDERED: Magnesium Citrate 300 ML BOT PO SCH (08:00)
[2018-05-07] MEDS ORDERED: Vancomycin HCl 25 MG/ML Oral PO SCH (09:00)
[2018-05-07] MEDS: HYDROcodone/Acetaminophen 10/325 mg Tablet PO SCH ×2 (09:20→20:28)
--- NOTE | 2018-05-07 09:23 | CON ---
DATE OF CONSULTATION: 05/07/2018 CHIEF COMPLAINT: Chronic diarrhea. HISTORY OF PRESENT ILLNESS: This is a 72-year-old male who I have been asked to see for a potential mass in the left colon. He had a CT scan which showed something in the sigmoid colon, looks like a s tricture. He has had a previous significant workup for this diarrhea, although on his CT here he has got a lot of retained stool in his right colon. He has never been told he had any sort of malignanc y; however, he is new to town and the family present does not know the details of previous hospitaliz ation and workup. Dr. Hinton is planning on at least sigmoidoscopy later today. He denies any abdominal pain today. He is just mostly concerned about diarrhea. PAST MEDICAL HISTORY: Diabetes, CVA, chronic diarrhea. PAST SURGICAL HISTORY: Coronary bypass, knee replacements, lipoma Lasik. SOCIAL HISTORY: No smoking, alcohol or other drugs. REVIEW OF SYSTEMS: Ten system review of systems otherwise negative. ALLERGIES: BETA BLOCKERS, HEPARIN. CURRENT MEDICINES: See list. PHYSICAL EXAMINATION: VITAL SIGNS: Blood pressure is 123/73, pulse 103, respirations 18. HEENT: Sclerae are anicteric. Oropharynx clear. NECK: No lymphadenopathy. CHEST: Clear. HEART: Regular rate and rhythm. ABDOMEN: Soft, nontender, nondistended. EXTREMITIES: No ischemia or edema to extremities. LABORATORY AND X-RAY FINDINGS: White blood cell count is 12, hemoglobin 9, platelet count is 312, cr eatinine is 0.55. CT abdomen and pelvis, possible intraluminal mass distal descending proximal sigmo id questionable pneumatosis of the cecum. ASSESSMENT: 1. Questionable sigmoid mass. 2. Pneumatosis of uncertain etiology, although he has got a lot of retained stool in the colon. He has got no pain. PLAN: Sigmoidoscopy. We will follow if there is an abnormality seen on colonoscopy.
[2018-05-07] MEDS: Finasteride 5 MG TAB PO SCH (09:52)
--- NOTE | 2018-05-07 11:01 | PDOC.PN ---
- Subjective Encounter Start Date: 05/07/18 Encounter Start Time: 11:00 CC: Diarrhea patient seen and examined. States that he is feeling ok. Still having diarrhea. NAD - Objective Resuscitation Status: Resuscitation Status DNR:Do Not Resuscitate MAR Reviewed: Yes Vital Signs & Weight: Vital Signs (12 hours) Temp Pulse Resp BP BP Pulse Ox 05/07/18 08:17 98.8 F 103 H 18 93 L 05/07/18 07:51 123/73 05/07/18 07:50 103 H 123/73 05/07/18 07:35 98.8 F 103 H 18 123/73 93 L 05/07/18 04:40 98.7 F 92 16 146/70 H 92 L Weight Admit Weight 181 lb Weight 181 lb 6.4 oz I&O: 05/06/18 05/07/18 05/08/18 06:59 06:59 06:59 Intake Total 309 6620 Balance 309 6620 Result Diagrams: 05/14/18 03:20 05/14/18 03:20 Additional Labs: Accuchecks 05/07/18 05/06/18 05/06/18 04:50 19:59 16:53 POC Glucose 163 H 95 114 H 05/06/18 11:24 POC Glucose 209 H Phys Exam - Physical Examination Constitutional: NAD HEENT: PERRLA, moist MMs Neck: no JVD, supple Respiratory: no wheezing, no rales, no rhonchi Cardiovascular: RRR, no significant murmur, no rub Gastrointestinal: soft, non-tender, no distention Musculoskeletal: pulses present Neurological: non-focal, normal sensation, moves all 4 limbs Psychiatric: normal affect, A&O x 3 Dx/Plan (1) sigmoid mass Status: Acute Comment: s/p sigmoidoscopy -- per GI masses in the GI ~10cm highly suspicious for malignancy. With lung findings of masses --- Might be metastasis. Surgery consulted for mass removal for both therapeutic and diagnostic purposes. Cardiac consulted for Cardiac clearance. 2D echo has been ordered. From medical stand point will control Glucose & BP. will medically optimize patient. Palliative team should have discussion with family regarding hospice. (2) Pneumatosis coli Code(s): K63.89 - OTHER SPECIFIED DISEASES OF INTESTINE Status: Acute Comment: per surgery will do resection of the sigmoid masses after medical and cardiac clearance. follow with surgery for managent. (3) Diabetes mellitus Code(s): E11.9 - TYPE 2 DIABETES MELLITUS WITHOUT COMPLICATIONS Status: Chronic Comment: increased insulin to 10. will monitor sugars closely (4) Clostridium difficile diarrhea Code(s): A04.72 - ENTEROCOLITIS D/T CLOSTRIDIUM DIFFICILE, NOT SPCF RECUR Status: Chronic Comment: vanco discontinued by GI. Will leave management to GI team (5) Chronic diarrhea of unknown origin Code(s): K52.9 - NONINFECTIVE GASTROENTERITIS AND COLITIS, UNSPECIFIED Status : Acute Comment: due to mass obstructing the rectum. will monitor - Plan DVT proph w/SCDs * . see above Review of Systems - Review of Systems Constitutional: negative: fever, chills, sweats, weakness, malaise, other Eyes: negative: Pain, Vision Change, Conjunctivae Inflammation, Eyelid Inflammation, Redness, Other ENT: negative: Ear Pain, Ear Discharge, Nose Pain, Nose Discharge, Nose Congestion, Mouth Pain, Mouth Swelling, Throat Pain, Throat Swelling, Other Respiratory: negative: Cough, Dry, Shortness of Breath, Hemoptysis, SOB with Excertion, Pleuritic Pain, Sputum, Wheezing Cardiovascular: negative: chest pain, palpitations, orthopnea, paroxysmal nocturnal dyspnea, edema, light headedness, other Gastrointestinal: Diarrhea. negative: Nausea, Vomiting, Abdominal Pain, Constipation, Melena, Hematochezia, Other Genitourinary: negative: Dysuria, Frequency, Incontinence, Hematuria, Retention , Other Musculoskeletal: negative: Neck Pain, Shoulder Pain, Arm Pain, Back Pain, Hand Pain, Leg Pain, Foot Pain, Other Skin: negative: Rash, Lesions, Kel, Bruising, Other Neurological: negative: Weakness, Numbness, Incoordination, Change in Speech, Confusion, Seizures, Other - Medications/Allergies Allergies/Adverse Reactions: Allergies Allergy/AdvReac Type Severity Reaction Status Date / Time Beta-Blockers Allergy Verified 05/06/18 00:24 (Beta-Adrenergic Bloc heparin Allergy Verified 05/06/18 00:24
--- NOTE | 2018-05-07 13:35 | OP ---
DATE OF PROCEDURE: 05/07/2018 SURGEON: Russell Hinton M.D. PREOPERATIVE DIAGNOSES: 1. CAT scan suggesting possible mass at the sigmoid colon, possible mass in the rectum, severe const ipation. Patient admitted with chronic diarrhea and prior history of colon polyps. Details unknown. 2. Anemia. Hemoglobin of 9. 3. Elevated CEA of 18. 4. CAT scan concerning for possible pulmonary metastatic disease. POSTOPERATIVE DIAGNOSES: 1. Extremely poor prep. 2. Polypoid mass with ulceration and necrosis in the rectum. This fills the entire lumen, ____ abou t 10 cm. I did not see a stalk that would permit it to be removed endoscopically. In any event, it looks malignant. Multiple biopsies obtained. 3. Mass near obstructing with inability to pass the colonoscope at about 30 cm circumferential and l arge. Multiple biopsies obtained and submitted to Pathology. 4. The remainder of the colon could not be evaluated secondary to inability to pass the sigmoid mass . RECOMMENDATIONS: Surgical consultation. Both masses will need to be removed at the time of surgery. Surgical consultation already performed by Dr. Maddox. He needs a Cardiology consult to evaluate preoperative risks and optimize any risks therefore. ANESTHESIA: TIVA. PROCEDURE IN DETAIL: After the patient was informed of the risks, benefits, possible complications o f endoscopy including perforation, medications, aspiration, informed consent was obtained. The patie nt was brought to the endoscopy suite where he was sedated in a gradual fashion. Once he was comfort able, a rectal exam was performed revealing poor prep. The endoscope was advanced into the anal ronny l and about 10 cm in proximal rectum a mass was encountered. It was polypoid and loose, but I could not detect a distinct base. It is very soft and friable with areas of necrosis superficially, it is probably well over 8 cm in size. I was able to get the scope to beyond this mass and a second mass w as encountered about 30-40 cm in the sigmoid colon. This mass was unable to be passed. The colon wa s fibrotic and narrowed here. I could see beyond it, but cannot get the scope to pass even with forc ing it a little bit. Multiple biopsies were obtained and submitted to Pathology. The scope was then removed. The patient tolerated the procedure well, he was brought to recovery room in stable condit ion.
[2018-05-07] MEDS: Aspirin 81 mg Enteric Coated Tablet PO SCH (14:37)
[2018-05-07] MEDS ORDERED: PROPOFOL 200 MG/20 ML VIAL ONE (14:48)
[2018-05-07] MEDS ORDERED: PHENYLEPHRINE-NS 100 MCG/ML 10 ML SYRINGE ONE (14:48)
[2018-05-07] MEDS ORDERED: ePHEDrine/0.9% NaCl/PF SYRINGE 50 mg/10 ml ONE (14:48)
[2018-05-07] MEDS: HumaLOG 300 UNITS/3 ML VIAL SC PRN ×2 (16:50→20:27)
--- NOTE | 2018-05-08 02:08 | CON ---
DATE OF CONSULTATION: 05/07/2018 HISTORY: Patrice Melo is a 72-year-old white male who in 2002 had a light heart attack while living in [place], [place] followed by CABG x5. He denies any cardiac problems since that time. He denies any chest discomfort or shortness of breath, although he is essentially bedridden due to problems with his right knee and because of a CVA in the past. Recently, while living in [place], he was admitted and found to have small-bowel obstruction and was told that he should probably be on hospice. He has had stomach distention as well as poor appetite and diarrhea. He has been found to have colonic mass suspicious for cancer and possible lung metastasis. PAST MEDICAL HISTORY: Coronary artery disease, cerebrovascular accident, diabetes, hyperlipidemia, hypertension, small-bowel obstruction, chronic knee pain, GERD. OPERATIONS: Bilateral total knee replacement with the right knee causing a lot of pain, removal of lipoma, and CABG. MEDICATIONS: Amlodipine 10 daily, Ecotrin 81 mg daily, atorvastatin 40 daily, enalapril 20 mg b.i.d., finasteride 5 mg daily, CoQ10 200 mg daily, tizanidine t.i.d. 4 mg b.i.d., tramadol p.r.n. ALLERGIES: HEPARIN. 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 SOCIAL HISTORY: He does not smoke or drink. REVIEW OF SYSTEMS: Twelve-point review of systems is unremarkable except as noted above. PHYSICAL EXAMINATION: VITAL SIGNS: Blood pressure 111/54, pulse of 93. HEENT: PERRL. NECK: Supple. CHEST: Clear. CARDIAC: S1, S2 are normal without any S3, S4, or murmurs. ABDOMEN: Normal bowel sounds and at times high-pitched bowel sounds. Abdomen seems distended. EXTREMITIES: Revealed 1+ arm edema. He also has 1+ lower extremity edema, chronic lymphedema, and venous stasis changes. NEUROLOGIC: Appears intact. LABORATORY DATA: EKG reveals sinus tachycardia with left-axis deviation, right bundle branch block. Hemoglobin 9.1, hematocrit 28.4, white count 12,000, platelets 312,000. Sodium 138, potassium 2.9 with a repeat of 3, chloride 107, carbon dioxide 22, BUN 13, creatinine 0.55. He underwent colonoscopy today. He was found to have a rectal mass as well as a near obstructing mass at 30 cm. Chest x-ray on 03/15/2018 revealed opacity in the right upper lobe. IMPRESSION: 1. Sigmoid and colonic masses suspicious for malignancy. 2. Status post coronary artery bypass graft x5 in 2002 while living in [place]. 3. Hypertension. 4. Diabetes. 5. Hypercholesterolemia. 6. History of cerebrovascular accident. 7. Hypokalemia. 8. Anemia. PLAN: Mr. Melo will undergo echocardiography to assess left ventricular function. Also, he will undergo Lexiscan Cardiolite testing. He is extremely sedentary, essentially bedridden. He does not have any specific cardiac complaints. LAURA
[2018-05-08] MEDS: traMADol HCl 50 MG TAB PO PRN ×2 (05:09→18:18)
--- NOTE | 2018-05-08 09:53 | PRG ---
DATE OF SERVICE: 05/08/2018 SUBJECTIVE: Mr. Melo had colonoscopy by Dr. Hinton yesterday as two masses, one at the rectosi gmoid junction, one up higher in the sigmoid. He is going to need a colectomy for definitive diagnos is and treatment. He is still complaining of diarrhea. He is also n.p.o. this morning and is upset about that. Denies abdominal pain. PHYSICAL EXAMINATION: VITAL SIGNS: Blood pressure is 130/80, pulse 92, respirations 16. He is afebrile. CHEST: Clear. HEART: Regular rate and rhythm. ABDOMEN: Soft, nontender, nondistended. EXTREMITIES: He does have pretty significant peripheral edema upper and lower extremities. LABORATORY DATA: White count 12. His hemoglobin is 9.1 yesterday. ASSESSMENT: Colon mass, multiple. PLAN: Ultimately going to need colon resection if deemed to be a decent candidate after cardiac samiramahad mason, we will follow with you. Probably plan surgery next week one day.
[2018-05-08] MEDS: Amlodipine 10 MG TAB PO SCH (10:38)
[2018-05-08] MEDS: Aspirin 81 mg Enteric Coated Tablet PO SCH (10:38)
[2018-05-08] MEDS: Atorvastatin Calcium 40 MG TAB PO SCH (10:39)
[2018-05-08] MEDS: Multivitamin W/ Minerals 1 TAB PO SCH (10:39)
[2018-05-08] MEDS: Finasteride 5 MG TAB PO SCH (10:39)
[2018-05-08] MEDS: Saccharomyces boulardii 250 MG CAP PO SCH (10:40)
[2018-05-08] MEDS: Ubidecarenone 50 MG CAP PO SCH (10:40)
[2018-05-08] MEDS ORDERED: Regadenoson 0.4 MG/5 ML SYRINGE ONE (10:43)
[2018-05-08] MEDS: D5 0.9% NS w/ 20 mEq KCl 1,000 ML IV SCH ×2 (10:50→18:34)
[2018-05-08] MEDS: HumaLOG 300 UNITS/3 ML VIAL SC PRN ×2 (11:34→11:43)
[2018-05-08] MEDS ORDERED: Dextrose 5% in Water 1,000 ML IV PRN (12:40)
[2018-05-08] MEDS ORDERED: Dextrose 50% Abboject 50 ML SYRINGE SLOW IVP PRN (12:40)
--- NOTE | 2018-05-08 12:43 | PDOC.PN ---
- Subjective Encounter Start Date: 05/08/18 Encounter Start Time: 12:42 Patient seen and examined. Getting ready for Echo. States that he feels well. Have no acute distress. - Objective Resuscitation Status: Resuscitation Status DNR:Do Not Resuscitate MAR Reviewed: Yes Vital Signs & Weight: Vital Signs (12 hours) Temp Pulse Resp BP Pulse Ox 05/08/18 08:00 98.2 F 92 16 93 L 05/08/18 07:57 98.2 F 92 16 130/80 93 L Weight Admit Weight 181 lb Weight 181 lb 6.4 oz I&O: 05/07/18 05/08/18 05/09/18 06:59 06:59 06:59 Intake Total 6620 1300 Balance 6620 1300 Result Diagrams: 05/07/18 04:38 05/07/18 07:06 Additional Labs: Accuchecks 05/08/18 05/08/18 05/07/18 11:31 04:16 20:13 POC Glucose 238 H 163 H 315 H 05/07/18 16:43 POC Glucose 353 H Phys Exam - Physical Examination Constitutional: NAD HEENT: PERRLA, moist MMs Neck: no JVD, supple Respiratory: no wheezing, no rales, no rhonchi Cardiovascular: no significant murmur, no rub Gastrointestinal: soft, non-tender, no distention Musculoskeletal: no edema, pulses present Neurological: non-focal cannot move lower extremities Psychiatric: normal affect, A&O x 3 Deviation from normal: bilateral venous stasis. Dx/Plan (1) sigmoid mass Status: Acute Comment: s/p sigmoidoscopy -- per GI masses in the GI ~10cm highly suspicious for malignancy. With lung findings of masses --- Might be metastasis. Surgery consulted for mass removal for both therapeutic and diagnostic purposes. Cardiac consulted for Cardiac clearance. 2D echo has been ordered. From medical stand point will control Glucose & BP. will medically optimize patient. Palliative team should have discussion with family regarding hospice. (2) Pneumatosis coli Code(s): K63.89 - OTHER SPECIFIED DISEASES OF INTESTINE Status: Acute Comment: per surgery will do resection of the sigmoid masses after medical and cardiac clearance. follow with surgery for managent. (3) Diabetes mellitus Code(s): E11.9 - TYPE 2 DIABETES MELLITUS WITHOUT COMPLICATIONS Status: Chronic Comment: increased insulin to 10. will monitor sugars closely (4) Clostridium difficile diarrhea Code(s): A04.72 - ENTEROCOLITIS D/T CLOSTRIDIUM DIFFICILE, NOT SPCF RECUR Status: Chronic Comment: vanco discontinued by GI. Will leave management to GI team (5) Chronic diarrhea of unknown origin Code(s): K52.9 - NONINFECTIVE GASTROENTERITIS AND COLITIS, UNSPECIFIED Status : Acute Comment: due to mass obstructing the rectum. will monitor (6) Hyperglycemia Code(s): R73.9 - HYPERGLYCEMIA, UNSPECIFIED Status: Acute Comment: will increase insulin then monitor - Plan * . Review of Systems - Review of Systems Constitutional: negative: fever, chills, sweats, weakness, malaise, other Eyes: negative: Pain, Vision Change, Conjunctivae Inflammation, Eyelid Inflammation, Redness, Other ENT: negative: Ear Pain, Ear Discharge, Nose Pain, Nose Discharge, Nose Congestion, Mouth Pain, Mouth Swelling, Throat Pain, Throat Swelling, Other Respiratory: negative: Cough, Dry, Shortness of Breath, Hemoptysis, SOB with Excertion, Pleuritic Pain, Sputum, Wheezing Cardiovascular: negative: chest pain, palpitations, orthopnea, paroxysmal nocturnal dyspnea, edema, light headedness, other Gastrointestinal: Diarrhea. negative: Nausea, Vomiting, Abdominal Pain, Constipation, Melena, Hematochezia, Other Genitourinary: negative: Dysuria, Frequency, Incontinence, Hematuria, Retention , Other Musculoskeletal: negative: Neck Pain, Shoulder Pain, Arm Pain, Back Pain, Hand Pain, Leg Pain, Foot Pain, Other Skin: negative: Rash, Lesions, Kel, Bruising, Other Neurological: negative: Weakness, Numbness, Incoordination, Change in Speech, Confusion, Seizures, Other - Medications/Allergies Allergies/Adverse Reactions: Allergies Allergy/AdvReac Type Severity Reaction Status Date / Time Beta-Blockers Allergy Verified 05/06/18 00:24 (Beta-Adrenergic Bloc heparin Allergy Verified 05/06/18 00:24 Medications: Current Medications Hydrocodone Bitart/Acetaminophen ([place] 10/325) 1 tab PO BID [facility] Last Admin: 05/07/18 20:28 Dose: Not Given Al Hydroxide/Mg Hydroxide (Maalox) 15 ml PO Q4H PRN PRN Reason: Heartburn or Indigestion Amlodipine Besylate (Norvasc) 10 mg PO DAILY [facility] Last Admin: 05/07/18 07:50 Dose: 10 mg Aspirin (Ecotrin) 81 mg PO DAILY [facility] Last Admin: 05/07/18 14:37 Dose: 81 mg Atorvastatin Calcium (Lipitor) 40 mg PO DAILY [facility] Last Admin: 05/07/18 07:52 Dose: 40 mg Benzonatate (Tessalon) 100 mg PO Q4H PRN PRN Reason: Cough Bisacodyl (Dulcolax) 10 mg PO DAILYPRN PRN PRN Reason: Constipation Calcium Carbonate (Tums) 1,000 mg PO Q4H PRN PRN Reason: Heartburn or Indigestion Clonidine (Catapres) 0.1 mg PO Q4H PRN PRN Reason: Systolic BP > 160 Coenzyme Q10 (Coenzyme Q10) 200 mg PO DAILY [facility] Last Admin: 05/07/18 07:59 Dose: 200 mg Dextrose/Water (Dextrose 50%) 25 gm SLOW IVP PRN PRN PRN Reason: Hypoglycemia Dextrose/Water (Dextrose 50%) 25 gm SLOW IVP PRN PRN PRN Reason: Hypoglycemia Enalapril Maleate (Vasotec) 20 mg PO BID [facility] Last Admin: 05/07/18 20:26 Dose: 20 mg Famotidine (Pepcid) 20 mg SLOW IVP BID [facility] Last Admin: 05/07/18 20:26 Dose: 20 mg Finasteride (Proscar) 5 mg PO DAILY [facility] Last Admin: 05/07/18 09:52 Dose: 5 mg Glucagon (Glucagon) 1 mg IM PRN PRN PRN Reason: Hypoglycemia Glucagon (Glucagon) 1 mg IM PRN PRN PRN Reason: Hypoglycemia Guaifenesin (Robitussin Sf) 200 mg PO Q4H PRN PRN Reason: Cough Hydralazine HCl (Apresoline) 10 mg SLOW IVP Q4H PRN PRN Reason: Systolic BP > 170 Dextrose/Water (D5w) 1,000 mls @ 0 mls/hr IV .Q0M PRN PRN Reason: Hypoglycemia Potassium Chloride/Dextrose/Sod Cl (D5 0.9% Ns W/ 20 Meq Kcl) 1,000 mls @ 100 mls/hr IV .Q10H [facility] Last Admin: 05/08/18 10:50 Dose: 1,000 mls Dextrose/Water (D5w) 1,000 mls @ 0 mls/hr IV .Q0M PRN PRN Reason: Hypoglycemia Insulin Human Isoph/Insulin Regular (Humulin 70/30) 10 units SC [facility] Insulin Human Lispro (Humalog) 0 units SC .MODERATE SLIDING SC PRN PRN Reason: Moderate Correctional Scale Last Admin: 05/08/18 11:43 Dose: 6 unit Insulin Human Lispro (Humalog) 0 units SC .BEDTIME SLIDING SC PRN PRN Reason: Bedtime Correctional Scale Last Admin: 05/07/18 20:27 Dose: 4 unit Iron/Minerals/Multivitamins (Theragran M) 1 tab PO DAILY [facility] Last Admin: 05/07/18 07:52 Dose: 1 tab Loratadine (Claritin) 10 mg PO DAILYPRN PRN PRN Reason: Sinus Symptoms Lorazepam (Ativan) 1 mg PO Q4H PRN PRN Reason: Anxiety/Agitation Morphine Sulfate (Morphine) 2 mg SLOW IVP Q4H PRN PRN Reason: Pain Last Admin: 05/08/18 10:55 Dose: 2 mg Nitroglycerin (Nitrostat) 0.4 mg SL Q5MIN PRN PRN Reason: Chest Pain Ondansetron HCl (Zofran) 4 mg IVP Q6H PRN PRN Reason: Nausea/Vomiting Saccharomyces Boulardii (Florastor) 250 mg PO DAILY [facility] Last Admin: 05/07/18 07:52 Dose: 250 mg Senna (Senokot) 2 tab PO HSPRN PRN PRN Reason: Constipation Sodium Chloride (Flush - Normal Saline) 10 ml IVF Q12HR [facility] Last Admin: 05/07/18 20:26 Dose: Not Given Sodium Chloride (Flush - Normal Saline) 10 ml IVF PRN PRN PRN Reason: Saline Flush Sodium Chloride (Flush - Normal Saline) 10 ml IVF PRN PRN PRN Reason: Saline Flush Tizanidine HCl (Zanaflex) 4 mg PO BID [facility] Last Admin: 05/07/18 20:26 Dose: 4 mg Tramadol HCl (Ultram) 50 mg PO Q8H PRN PRN Reason: Pain Last Admin: 05/08/18 05:09 Dose: 50 mg Trazodone HCl (Desyrel) 50 mg PO HSPRN PRN PRN Reason: Insomnia
[2018-05-08] MEDS: HYDROcodone/Acetaminophen 10/325 mg Tablet PO SCH ×2 (12:49→22:10)
[2018-05-08] MEDS: Famotidine/PF 20 mg/2ml Vial SLOW IVP SCH ×2 (12:49→22:12)
[2018-05-08] MEDS: Insulin NPH/Reg Insulin Hm 300 UNITS/3 ML VIAL SC SCH ×2 (12:50→17:07)
[2018-05-08] MEDS: tiZANidine HCl 4 MG TAB PO SCH ×2 (12:50→22:09)
--- NOTE | 2018-05-08 14:25 | EKG ---
Test Reason : Blood Pressure : / mmHG Vent. Rate : 108 BPM Atrial Rate : 108 BPM P-R Int : 128 ms QRS Dur : 146 ms QT Int : 390 ms P-R-T Axes : 091 -69 -04 degrees QTc Int : 522 ms Sinus tachycardia with occasional Premature ventricular complexes Left axis deviation Right bundle branch block Possible Lateral infarct , age undetermined Abnormal ECG Confirmed by PORTER ROSA D.O. ([id number]), magazine editor CATHY OSORIO ([id number] on 05/08/2018 2:24:45 PM Referred By: Confirmed By:PORTER ROSA D.O.
--- NOTE | 2018-05-08 17:08 | NM ---
MYOCARDIAL PERFUSION STUDY: 05/08/18 HISTORY: Preoperative clearance. RADIOPHARMACEUTICALS: 31 millicuries technetium 99m Sestamibi, IV at stress and 10 millicuries technetium 99m Sestamibi, IV at rest. MEDICATIONS: 0.4 mg Lexiscan, IV. FINDINGS: There is no reversible defect seen between the stress and resting acquisitions. Quantitative analysis also shows no significant reversible defect. Gated images demonstrate hypokinesis involving the sept um and to a lesser extent involving the inferior left ventricular wall. The calculated left ventricul ar ejection fraction is at the lower limits of normal with an LVEF of 53%. Transient ischemic dilatat ion ratio is mildly elevated at 1.29. IMPRESSION: 1. Normal myocardial perfusion study without evidence of a reversible defect seen to suggest isc hemia. 2. Hypokinesis involving the septum and to a lesser extent inferior left ventricular wall. 3. Low normal LVEF of 53%. 4. Increased transient ischemic dilatation ratio. POS: [facility]
--- NOTE | 2018-05-08 18:20 | PRG ---
DATE OF SERVICE: 05/08/2018 SUBJECTIVE: Mr. Melo had a colonoscopy, which showed large polypoid mass. He has been assesse d for possible resection of the mass, which is likely malignant. The patient reportedly had similar polypoid areas in the rectosigmoid in [place], which were removed. OBJECTIVE: VITAL SIGNS: His T-max 98.2. White cell count 12,000. Albumin 2.6. LUNGS: Clear. HEART: S1, S2, regular rate. ABDOMEN: Soft. ASSESSMENT AND DISCUSSION: Ischemic cardiomyopathy, prior CVA, severe osteoarthrosis, chronic lymphe whit and stasis dermatitis. Motility impairment colon and question malignancy associated with findin gs in the CT scan and now with a large polypoid mass. The patient has been evaluated for resection o f the mass, which should be carried out in the beginning of next week.
--- NOTE | 2018-05-09 03:06 | CON ---
DATE OF CONSULTATION: 05/08/2018 HISTORY OF PRESENT ILLNESS: This is a 72-year-old male with history of diarrhea for over 1 year. He used to live in [place] and has recently moved to this area. He was admitted with the complaints of diarrhea and abdominal pain. He had a stool test in the emergency room that test p ositive for Campylobacter. He was admitted and started on IV levofloxacin and Flagyl. He had CT sca n of the abdomen that was suggestive of a mass near sigmoid colon and a possible mass in the rectum. He underwent lower GI endoscopy by Dr. Hinton on 05/07/2018. The preparation was extremely poor. A polypoid mass was noted with ulceration and necrosis in the rectum. This was filling up the entire lumen about 10 cm and it appeared malignant. Biopsies have been obtained. Another near obstructing mass was noted at about 30 cm. This was large and circumferential. This was also biopsied. The pat ient has been evaluated for surgery by Dr. Maddox who recommend cardiology clearance. It should be noted that this patient has multiple comorbidities and has been essentially bed confined for a long time. PAST MEDICAL HISTORY: Diabetes type 1, history of CVA, coronary artery disease with myocardial infar ction, dyslipidemia, hypertension, small bowel obstruction by history, chronic knee pain, and gastroe sophageal reflux disease. PAST SURGICAL HISTORY: Include coronary artery bypass graft, bilateral total knee replacement, and c ataract surgery. PERSONAL FAMILY AND SOCIAL HISTORY: The patient does not smoke and does not drink. He lives with hi s and is currently staying with his daughter also. CODE STATUS: The patient is DNR. PHYSICAL EXAMINATION: GENERAL: The patient appears chronically ill and deconditioned. VITAL SIGNS: Height 5 feet 4 inches. Weight 181 pounds, blood pressure 137/75, temperature 97.7, pu lse 99. HEENT: Unremarkable. LYMPH NODES: Lymph nodes grossly not palpable in cervical, supraclavicular, axillary, and inguinal a genet. CHEST: Vesicular breath sounds without rales or rhonchi. HEART: Regular rhythm. S1 and S2. ABDOMEN: Distended. It is not tender. Bowel sounds are abnormal and infrequent. EXTREMITIES: There is gross diffuse thickening of the skin over the lower extremities bilaterally. It is suggestive of chronic edema/stasis. LABORATORY DATA: CBC showed WBC of 12,000, hemoglobin 9.1 grams, platelet count of 312,000. Differe ntial showed 81.8% neutrophils and 8.5% lymphocytes. Chemistry profile shows normal BUN and creatini ne. Electrolytes are generally normal. Glucose 146, alkaline phosphatase is elevated at 174, albumi n 2.6. CEA 18.11. IMAGING STUDIES: Chest x-ray showed opacity in right upper lobe, thought to represent infectio n. CT scan of abdomen and pelvis showed nodule in the middle lobe and 2 nodules measuring 0.7 and 0.8 cm in left lower lobe. There was 1.2 cm nodule in the right adrenal gland. Intraluminal mas s was noted in the distal descending colon and proximal sigmoid colon with associated obstruction. ASSESSMENT AND RECOMMENDATIONS: Most likely this patient has 2 colonic masses with a lung metastasis . He is in the process of completing evaluation preoperatively for possible colon resection. I woul d like to see this patient again following colon surgery and at that time a treatment recommendation will be made.
[2018-05-09] MEDS: D5 0.9% NS w/ 20 mEq KCl 1,000 ML IV SCH ×2 (05:30→17:02)
[2018-05-09] MEDS: traMADol HCl 50 MG TAB PO PRN ×2 (08:04→17:03)
[2018-05-09] MEDS: Finasteride 5 MG TAB PO SCH (08:06)
[2018-05-09] MEDS: Atorvastatin Calcium 40 MG TAB PO SCH (08:06)
[2018-05-09] MEDS: tiZANidine HCl 4 MG TAB PO SCH ×2 (08:06→21:48)
[2018-05-09] MEDS: Multivitamin W/ Minerals 1 TAB PO SCH (08:07)
[2018-05-09] MEDS: Aspirin 81 mg Enteric Coated Tablet PO SCH (08:07)
[2018-05-09] MEDS: Saccharomyces boulardii 250 MG CAP PO SCH (08:07)
[2018-05-09] MEDS: Amlodipine 10 MG TAB PO SCH (08:08)
[2018-05-09] MEDS: Insulin NPH/Reg Insulin Hm 300 UNITS/3 ML VIAL SC SCH ×3 (08:09→17:05)
[2018-05-09] MEDS: HYDROcodone/Acetaminophen 10/325 mg Tablet PO SCH ×2 (08:10→21:49)
[2018-05-09] MEDS: Ubidecarenone 50 MG CAP PO SCH (08:10)
[2018-05-09] MEDS: Famotidine/PF 20 mg/2ml Vial SLOW IVP SCH ×2 (08:10→21:48)
[2018-05-09 11:57] LABS: Anion Gap 7 mmol/L (10-20); BUN (Urea Nitrogen) 10 mg/dL (8.4-25.7); Calc. Creatinine Clearance 121 mL/min (70-130); Calcium 7.6 mg/dL (7.8-10.44); Carbon Dioxide 26 mmol/L (23-31); Chloride 106 mmol/L (98-107); Estimated GFR-MDRD Greater than 90; Glucose 340 mg/dL (83-110); Magnesium 1.7 mg/dL (1.6-2.6); Potassium 3.7 mmol/L (3.5-5.1); Sodium 135 mmol/L (136-145)
[2018-05-09 12:03] LABS: Phosphorus 1.7 mg/dL (2.3-4.7)
[2018-05-09] MEDS: HumaLOG 300 UNITS/3 ML VIAL SC PRN ×2 (12:33→17:06)
[2018-05-09] MEDS ORDERED: K-Phos Neutral 250 MG TAB PO SCH (13:00)
--- NOTE | 2018-05-09 13:01 | RAD ---
PORTABLE CHEST 1 VIEW: DATE: 05/09/18. TIME: 12:11 p.m. HISTORY: Left-sided effusion. FINDINGS: Comparison is made with the exam of 03/15/18. There are changes of median sternotomy. The heart size is normal. The aorta is tortuous. There is pulmonary vascular congestion with small bilateral pleural effusions. There may be an infiltrate/ate lectatic change of the left lung base. No pneumothoraces are seen. There are degenerative changes i n the right shoulder joint. POS: [facility]
--- NOTE | 2018-05-09 16:58 | PRG ---
DATE OF SERVICE: 05/09/2018 SUBJECTIVE: Mr. Melo is without complaints. He is not tolerating liquid diet. He is not really drinking his supplements. He has completed his cardiac evaluation. Medications reviewed. OBJECTIVE: GENERAL: He is resting comfortably in bed. He is in no distress. VITAL SIGNS: Temperature is 98.4, pulse 96, blood pressure 129/69. ABDOMEN: Soft, nontender. LABORATORY STUDIES: White count 12,000, hemoglobin 9, platelet count 312. Sodium 135, potassium 3.7, BUN and creatinine are 10 and 0.6, phosphorus 1.7, magnesium 1.7. Chest x-ray: Pulmonary vascular congestion, small bilateral effusions, degenerative bony changes. Echocardiogram: EF 50%-60%, diastolic dysfunction, large right ventricle, mild MR, aortic valve sclerosis, moderate to severe TR, stress nuclear test normal without reversible defects. Increased transient ischemic dilation ratio. ASSESSMENT: 1. 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 He got two lesions, one at about 10 cm, one at about 40 cm. These corresponded to the polyps that were said to have been removed with high grade dysplasia in [place], [place] in 2014 that were measured at 30 and 10 cm. The more proximal lesion is going to be obstructing soon. It is concerning that his CEA is mildly elevated. The CAT scan report indicates he may have metastatic disease to the adrenals and lungs. All these issues have been explained to the patient, he understands them. 2. Coronary artery disease with prior bypass. Card Lacer visit with the patient risk assessments and recommendations, but in any event, the patient will be at increased risk of surgical morbidity and mortality secondary to his cardiac disease and his malnutrition and his lack of any mobility, he has not been out of bed in 2 years secondary to stroke. RECOMMENDATIONS: I have asked him to start drinking the diabetic supplement drinks 3 times a day. He is really not drinking this at this time. Usually making decisions to his family with regard to his issues of whether or not he wants to have colonic resection. He understands this likely will not be curative and understands from his conversation with Dr. Lovett that he is not likely a candidate for any adjuvant chemotherapy even if there is residual disease because of his cardiac disease, poor nutritional status and poor functional status. In short, he would be at high risk of morbidity and mortality from the chemotherapy based on these factors and traditional chemotherapy based on these factors and he would get benefit from them. Final decision will be left to Oncology. MTDD
[2018-05-09] MEDS: K-Phos Neutral 250 MG TAB PO SCH (18:41)
--- NOTE | 2018-05-09 23:05 | PDOC.PN ---
- Subjective Encounter Start Date: 05/09/18 Encounter Start Time: 11:45 Patient seen and examined for Colon masses. Diarrhea +. No new complaints. No overnight events - Objective Resuscitation Status: Resuscitation Status DNR:Do Not Resuscitate MAR Reviewed: Yes Vital Signs & Weight: Vital Signs (12 hours) Temp Pulse Resp BP BP Pulse Ox 05/09/18 21:48 111/62 05/09/18 19:59 98.0 F 74 16 111/62 96 Weight Admit Weight 181 lb Weight 181 lb 6.4 oz I&O: 05/08/18 05/09/18 05/10/18 06:59 06:59 06:59 Intake Total 1300 1880 Output Total 4 3 Balance 1300 -4 1877 Result Diagrams: 05/07/18 04:38 05/09/18 11:29 Additional Labs: Accuchecks 05/09/18 05/09/18 05/09/18 20:05 16:50 11:29 POC Glucose 86 272 H 304 H 05/09/18 05:04 POC Glucose 238 H Phys Exam - Physical Examination Constitutional: NAD Respiratory: no wheezing, no rhonchi Cardiovascular: RRR, no rub Gastrointestinal: soft, positive bowel sounds Musculoskeletal: no edema Neurological: moves all 4 limbs Dx/Plan - Plan DVT proph w/SCDs IMPRESSION: 1. Colon mass 2. Chronic diarrhea 3. Moderate protein calorie malnutrion 4. Obesity BMI 34.3/ HTN/ CAD / Electrolyte abn / DM - 1 5. Other issues per previous notes PLAN: Change 70/30 to NPH Cont Moderate sliding scale Replace P AM labs Cont to monitor Cont current meds as below Laboratory Tests 05/09/18 11:29 Phosphorus 1.7 L Review of Systems - Review of Systems Respiratory: negative: Cough, Dry, Shortness of Breath, Hemoptysis, SOB with Excertion, Pleuritic Pain, Sputum, Wheezing Cardiovascular: negative: chest pain, palpitations, orthopnea, paroxysmal nocturnal dyspnea, edema, light headedness, other - Medications/Allergies Allergies/Adverse Reactions: Allergies Allergy/AdvReac Type Severity Reaction Status Date / Time Beta-Blockers Allergy Verified 05/06/18 00:24 (Beta-Adrenergic Bloc heparin Allergy Verified 05/06/18 00:24 Medications: Current Medications Hydrocodone Bitart/Acetaminophen ([place] 10/325) 1 tab PO BID [facility] Last Admin: 05/09/18 21:49 Dose: Not Given Al Hydroxide/Mg Hydroxide (Maalox) 15 ml PO Q4H PRN PRN Reason: Heartburn or Indigestion Amlodipine Besylate (Norvasc) 10 mg PO DAILY [facility] Last Admin: 05/09/18 08:08 Dose: 10 mg Aspirin (Ecotrin) 81 mg PO DAILY [facility] Last Admin: 05/09/18 08:07 Dose: 81 mg Atorvastatin Calcium (Lipitor) 40 mg PO DAILY [facility] Last Admin: 05/09/18 08:06 Dose: 40 mg Benzonatate (Tessalon) 100 mg PO Q4H PRN PRN Reason: Cough Bisacodyl (Dulcolax) 10 mg PO DAILYPRN PRN PRN Reason: Constipation Calcium Carbonate (Tums) 1,000 mg PO Q4H PRN PRN Reason: Heartburn or Indigestion Clonidine (Catapres) 0.1 mg PO Q4H PRN PRN Reason: Systolic BP > 160 Coenzyme Q10 (Coenzyme Q10) 200 mg PO DAILY [facility] Last Admin: 05/09/18 08:10 Dose: 200 mg Dextrose/Water (Dextrose 50%) 25 gm SLOW IVP PRN PRN PRN Reason: Hypoglycemia Dextrose/Water (Dextrose 50%) 25 gm SLOW IVP PRN PRN PRN Reason: Hypoglycemia Enalapril Maleate (Vasotec) 20 mg PO BID [facility] Last Admin: 05/09/18 21:48 Dose: 20 mg Famotidine (Pepcid) 20 mg SLOW IVP BID [facility] Last Admin: 05/09/18 21:48 Dose: 20 mg Finasteride (Proscar) 5 mg PO DAILY [facility] Last Admin: 05/09/18 08:06 Dose: 5 mg Glucagon (Glucagon) 1 mg IM PRN PRN PRN Reason: Hypoglycemia Glucagon (Glucagon) 1 mg IM PRN PRN PRN Reason: Hypoglycemia Guaifenesin (Robitussin Sf) 200 mg PO Q4H PRN PRN Reason: Cough Hydralazine HCl (Apresoline) 10 mg SLOW IVP Q4H PRN PRN Reason: Systolic BP > 170 Dextrose/Water (D5w) 1,000 mls @ 0 mls/hr IV .Q0M PRN PRN Reason: Hypoglycemia Potassium Chloride/Dextrose/Sod Cl (D5 0.9% Ns W/ 20 Meq Kcl) 1,000 mls @ 100 mls/hr IV .Q10H [facility] Last Admin: 05/09/18 17:02 Dose: 1,000 mls Dextrose/Water (D5w) 1,000 mls @ 0 mls/hr IV .Q0M PRN PRN Reason: Hypoglycemia Insulin Human Isoph/Insulin Regular (Humulin 70/30) 10 units SC AC [facility] Last Admin: 05/09/18 17:05 Dose: 10 unit Insulin Human Lispro (Humalog) 0 units SC .MODERATE SLIDING SC PRN PRN Reason: Moderate Correctional Scale Last Admin: 05/09/18 17:06 Dose: 6 unit Insulin Human Lispro (Humalog) 0 units SC .BEDTIME SLIDING SC PRN PRN Reason: Bedtime Correctional Scale Last Admin: 05/07/18 20:27 Dose: 4 unit Iron/Minerals/Multivitamins (Theragran M) 1 tab PO DAILY [facility] Last Admin: 05/09/18 08:07 Dose: 1 tab Loratadine (Claritin) 10 mg PO DAILYPRN PRN PRN Reason: Sinus Symptoms Lorazepam (Ativan) 1 mg PO Q4H PRN PRN Reason: Anxiety/Agitation Morphine Sulfate (Morphine) 2 mg SLOW IVP Q4H PRN PRN Reason: Pain Last Admin: 05/09/18 14:29 Dose: 2 mg Nitroglycerin (Nitrostat) 0.4 mg SL Q5MIN PRN PRN Reason: Chest Pain Nitroglycerin (Nitro-Bid 2% Ointment) 0.5 inch TOP Q8HR [facility] Ondansetron HCl (Zofran) 4 mg IVP Q6H PRN PRN Reason: Nausea/Vomiting Phosphorus (Kphos Neutral) 250 mg PO TID-WM [facility] Last Admin: 05/09/18 18:41 Dose: 250 mg Saccharomyces Boulardii (Florastor) 250 mg PO DAILY [facility] Last Admin: 05/09/18 08:07 Dose: 250 mg Senna (Senokot) 2 tab PO HSPRN PRN PRN Reason: Constipation Sodium Chloride (Flush - Normal Saline) 10 ml IVF Q12HR [facility] Last Admin: 05/09/18 21:49 Dose: Not Given Sodium Chloride (Flush - Normal Saline) 10 ml IVF PRN PRN PRN Reason: Saline Flush Sodium Chloride (Flush - Normal Saline) 10 ml IVF PRN PRN PRN Reason: Saline Flush Tizanidine HCl (Zanaflex) 4 mg PO BID [facility] Last Admin: 05/09/18 21:48 Dose: 4 mg Tramadol HCl (Ultram) 50 mg PO Q8H PRN PRN Reason: Pain Last Admin: 05/09/18 17:03 Dose: 50 mg Trazodone HCl (Desyrel) 50 mg PO HSPRN PRN PRN Reason: Insomnia
[2018-05-09] MEDS ORDERED: HYDROcodone/Acetaminophen 10/325 mg Tablet PO PRN (23:48)
[2018-05-10] MEDS: D5 0.9% NS w/ 20 mEq KCl 1,000 ML IV SCH ×3 (00:44→14:31)
[2018-05-10] MEDS: traMADol HCl 50 MG TAB PO PRN (03:41)
[2018-05-10 05:21] LABS: Anion Gap 10 mmol/L (10-20); BUN (Urea Nitrogen) 9 mg/dL (8.4-25.7); Calc. Creatinine Clearance 144 mL/min (70-130); Calcium 7.5 mg/dL (7.8-10.44); Carbon Dioxide 20 mmol/L (23-31); Chloride 109 mmol/L (98-107); Estimated GFR-MDRD Greater than 90; Glucose 86 mg/dL (83-110); Potassium 3.9 mmol/L (3.5-5.1); Sodium 135 mmol/L (136-145)
[2018-05-10] MEDS: Famotidine/PF 20 mg/2ml Vial SLOW IVP SCH ×2 (08:50→20:36)
[2018-05-10] MEDS: Saccharomyces boulardii 250 MG CAP PO SCH (08:52)
[2018-05-10] MEDS: Ubidecarenone 50 MG CAP PO SCH (08:52)
[2018-05-10] MEDS: Aspirin 81 mg Enteric Coated Tablet PO SCH (08:52)
[2018-05-10] MEDS: Atorvastatin Calcium 40 MG TAB PO SCH (08:52)
[2018-05-10] MEDS: Finasteride 5 MG TAB PO SCH (08:52)
[2018-05-10] MEDS: Multivitamin W/ Minerals 1 TAB PO SCH (08:53)
[2018-05-10] MEDS: Amlodipine 10 MG TAB PO SCH (08:58)
[2018-05-10] MEDS: Nitroglycerin 2% Ointment 1 INCH/1 GM Packet TOP SCH ×3 (08:59→20:58)
[2018-05-10] MEDS: tiZANidine HCl 4 MG TAB PO SCH ×2 (08:59→20:35)
[2018-05-10] MEDS: K-Phos Neutral 250 MG TAB PO SCH ×3 (08:59→17:26)
[2018-05-10 09:25] LABS: #Basophils 0.1 thou/uL (0.0-0.2); #Eosinphils 0.3 thou/uL (0.0-0.7); #Lymphocytes 1.2 thou/uL (1.20-3.40); #Monocytes 0.8 thou/uL (0.11-0.59); #Neutrophils 10.2 thou/uL (1.40-6.50); %Basophils 0.7 % (0.0-1.0); %Eosinophils 2.7 % (0.0-10.0); %Lymphocytes 9.5 % (21.0-51.0); %Monocytes 6.6 % (0.0-10.0); %Neutrophils 80.5 % (42.0-75.0); Hemoglobin 10.7 g/dL (14.0-18.0); Mean Corpuscular HGB CONC 31.5 g/dL (32.0-36.0); Mean Corpuscular Hemoglobin 31.4 pg (27.0-31.0); Mean Corpuscular Volume 99.5 fL (78.0-98.0); Mean Platelet Volume 7.4 fL (7.4-10.4); Platelet Count 335 thou/uL (130-400); RBC Distribution Width 15.1 % (11.5-14.5); Red Blood Cell (RBC) Count 3.41 mill/uL (4.70-6.10); White Blood Cell (WBC) Count 12.7 thou/uL (4.8-10.8)
[2018-05-10 09:41] LABS: Band 7 % (5-11); Eosinophils 3 % (0-10); Lymphocytes 11 % (21-51); MDiff Complete? YES; Monocytes 1 % (0-10); Neutrophil 78 % (42-75); Polychromasia SLIGHT = 2-3 cells (100X) (0-2/hpf)
[2018-05-10] MEDS: NPH, Human Insulin Isophane 300 UNIT/3 ML VIAL SC SCH (10:03)
[2018-05-10] MEDS ORDERED: Furosemide 20 MG/2 ML VIAL SLOW IVP SCH (14:00)
[2018-05-10] MEDS: HumaLOG 300 UNITS/3 ML VIAL SC PRN ×2 (17:27→20:42)
--- NOTE | 2018-05-10 22:41 | PDOC.PN ---
- Subjective Encounter Start Date: 05/10/18 Encounter Start Time: 13:30 Patient seen and examined for Colon mass. Feels gen weak, Poor appetite. No new complaints. No overnight events - Objective Resuscitation Status: Resuscitation Status DNR:Do Not Resuscitate MAR Reviewed: Yes Vital Signs & Weight: Vital Signs (12 hours) Temp Pulse Resp BP BP Pulse Ox 05/10/18 20:36 138/74 05/10/18 20:00 98.2 F 101 H 18 138/74 94 L Weight Admit Weight 181 lb Weight 181 lb 6.4 oz I&O: 05/09/18 05/10/18 05/11/18 06:59 06:59 06:59 Intake Total 3680 1360 Output Total 4 3 Balance -4 3677 1360 Result Diagrams: 05/10/18 08:11 05/10/18 04:40 Additional Labs: Accuchecks 05/10/18 05/10/18 05/10/18 20:36 17:25 11:15 POC Glucose 302 H 372 H 225 H 05/10/18 05/10/18 05:05 03:29 POC Glucose 85 83 Phys Exam - Physical Examination Constitutional: NAD Respiratory: no wheezing, no rhonchi Cardiovascular: RRR, no rub Gastrointestinal: soft, positive bowel sounds Neurological: moves all 4 limbs Dx/Plan - Plan DVT proph w/SCDs IMPRESSION: 1. Near obstructing Colon Ca 2. Chronic diarrhea 3. Moderate protein calorie malnutrion 4. Obesity BMI 34.3/ HTN/ CAD / Electrolyte abn / DM - 1 / C diff antigen positive with toxin negative - no Rx needed per GI 5. Other issues per previous notes PLAN: Change sliding scale to mild AM labs Cont IV D5 NS Refusing Lasix Cont to monitor Cont current meds as below Review of Systems - Review of Systems Respiratory: negative: Cough, Dry, Shortness of Breath, Hemoptysis, SOB with Excertion, Pleuritic Pain, Sputum, Wheezing Cardiovascular: negative: chest pain, palpitations, orthopnea, paroxysmal nocturnal dyspnea, edema, light headedness, other - Medications/Allergies Allergies/Adverse Reactions: Allergies Allergy/AdvReac Type Severity Reaction Status Date / Time Beta-Blockers Allergy Verified 05/06/18 00:24 (Beta-Adrenergic Bloc heparin Allergy Verified 05/06/18 00:24 Medications: Current Medications Hydrocodone Bitart/Acetaminophen ([place] 10/325) 1 tab PO BID PRN PRN Reason: Mild-Moderate Pain (1-5) Al Hydroxide/Mg Hydroxide (Maalox) 15 ml PO Q4H PRN PRN Reason: Heartburn or Indigestion Amlodipine Besylate (Norvasc) 10 mg PO DAILY [facility] Last Admin: 05/10/18 08:58 Dose: 10 mg Aspirin (Ecotrin) 81 mg PO DAILY [facility] Last Admin: 05/10/18 08:52 Dose: 81 mg Atorvastatin Calcium (Lipitor) 40 mg PO DAILY [facility] Last Admin: 05/10/18 08:52 Dose: 40 mg Benzonatate (Tessalon) 100 mg PO Q4H PRN PRN Reason: Cough Bisacodyl (Dulcolax) 10 mg PO DAILYPRN PRN PRN Reason: Constipation Calcium Carbonate (Tums) 1,000 mg PO Q4H PRN PRN Reason: Heartburn or Indigestion Clonidine (Catapres) 0.1 mg PO Q4H PRN PRN Reason: Systolic BP > 160 Coenzyme Q10 (Coenzyme Q10) 200 mg PO DAILY [facility] Last Admin: 05/10/18 08:52 Dose: 200 mg Dextrose/Water (Dextrose 50%) 25 gm SLOW IVP PRN PRN PRN Reason: Hypoglycemia Enalapril Maleate (Vasotec) 20 mg PO BID [facility] Last Admin: 05/10/18 20:36 Dose: 20 mg Famotidine (Pepcid) 20 mg SLOW IVP BID [facility] Last Admin: 05/10/18 20:36 Dose: 20 mg Finasteride (Proscar) 5 mg PO DAILY [facility] Last Admin: 05/10/18 08:52 Dose: 5 mg Furosemide (Lasix) 20 mg SLOW IVP DAILY [facility] Glucagon (Glucagon) 1 mg IM PRN PRN PRN Reason: Hypoglycemia Guaifenesin (Robitussin Sf) 200 mg PO Q4H PRN PRN Reason: Cough Hydralazine HCl (Apresoline) 10 mg SLOW IVP Q4H PRN PRN Reason: Systolic BP > 170 Potassium Chloride/Dextrose/Sod Cl (D5 0.9% Ns W/ 20 Meq Kcl) 1,000 mls @ 100 mls/hr IV .Q10H [facility] Last Admin: 05/10/18 14:31 Dose: 1,000 mls Dextrose/Water (D5w) 1,000 mls @ 0 mls/hr IV .Q0M PRN PRN Reason: Hypoglycemia Insulin Human Lispro (Humalog) 0 units SC .BEDTIME SLIDING SC PRN PRN Reason: Bedtime Correctional Scale Last Admin: 05/10/18 20:42 Dose: 4 unit Insulin Human Lispro (Humalog) 0 units SC .MILD SLIDING SCALE PRN PRN Reason: Mild Correctional Scale Last Admin: 05/10/18 17:27 Dose: 6 unit Insulin Human NPH (Humulin N) 10 unit SC QAM[facility] Last Admin: 05/10/18 10:03 Dose: Not Given Iron/Minerals/Multivitamins (Theragran M) 1 tab PO DAILY [facility] Last Admin: 05/10/18 08:53 Dose: 1 tab Loratadine (Claritin) 10 mg PO DAILYPRN PRN PRN Reason: Sinus Symptoms Lorazepam (Ativan) 1 mg PO Q4H PRN PRN Reason: Anxiety/Agitation Morphine Sulfate (Morphine) 2 mg SLOW IVP Q4H PRN PRN Reason: breakthrough Pain Last Admin: 05/10/18 20:53 Dose: 2 mg Nitroglycerin (Nitrostat) 0.4 mg SL Q5MIN PRN PRN Reason: Chest Pain Nitroglycerin (Nitro-Bid 2% Ointment) 0.5 inch TOP Q8HR [facility] Last Admin: 05/10/18 20:58 Dose: 0.5 inch Ondansetron HCl (Zofran) 4 mg IVP Q6H PRN PRN Reason: Nausea/Vomiting Phosphorus (Kphos Neutral) 250 mg PO TID-[facility] Last Admin: 05/10/18 17:26 Dose: 250 mg Saccharomyces Boulardii (Florastor) 250 mg PO DAILY [facility] Last Admin: 05/10/18 08:52 Dose: 250 mg Senna (Senokot) 2 tab PO HSPRN PRN PRN Reason: Constipation Sodium Chloride (Flush - Normal Saline) 10 ml IVF Q12HR [facility] Last Admin: 05/10/18 20:14 Dose: Not Given Sodium Chloride (Flush - Normal Saline) 10 ml IVF PRN PRN PRN Reason: Saline Flush Tizanidine HCl (Zanaflex) 4 mg PO BID [facility] Last Admin: 05/10/18 20:35 Dose: 4 mg Tramadol HCl (Ultram) 50 mg PO Q4H PRN PRN Reason: Moderate to Severe Pain (6-10) Last Admin: 05/10/18 03:41 Dose: 50 mg Trazodone HCl (Desyrel) 50 mg PO HSPRN PRN PRN Reason: Insomnia
[2018-05-11] MEDS: traMADol HCl 50 MG TAB PO PRN ×3 (01:42→21:26)
[2018-05-11] MEDS: D5 0.9% NS w/ 20 mEq KCl 1,000 ML IV SCH ×3 (03:24→12:40)
[2018-05-11] MEDS: Nitroglycerin 2% Ointment 1 INCH/1 GM Packet TOP SCH ×3 (05:19→21:25)
[2018-05-11] MEDS: HumaLOG 300 UNITS/3 ML VIAL SC PRN (05:20)
[2018-05-11] MEDS: K-Phos Neutral 250 MG TAB PO SCH ×3 (08:12→16:42)
[2018-05-11] MEDS: Ubidecarenone 50 MG CAP PO SCH (08:13)
[2018-05-11] MEDS: Atorvastatin Calcium 40 MG TAB PO SCH (08:13)
[2018-05-11] MEDS: Saccharomyces boulardii 250 MG CAP PO SCH (08:14)
[2018-05-11] MEDS: Multivitamin W/ Minerals 1 TAB PO SCH (08:14)
[2018-05-11] MEDS: Finasteride 5 MG TAB PO SCH (08:14)
[2018-05-11] MEDS: Aspirin 81 mg Enteric Coated Tablet PO SCH (08:14)
[2018-05-11] MEDS: tiZANidine HCl 4 MG TAB PO SCH ×2 (08:14→21:26)
[2018-05-11] MEDS: NPH, Human Insulin Isophane 300 UNIT/3 ML VIAL SC SCH (08:14)
[2018-05-11] MEDS: Amlodipine 10 MG TAB PO SCH (08:23)
[2018-05-11] MEDS: Furosemide 20 MG/2 ML VIAL SLOW IVP SCH (08:56)
[2018-05-11] MEDS: Famotidine 20 MG TAB PO SCH ×2 (09:53→21:27)
--- NOTE | 2018-05-11 23:11 | PDOC.PN ---
- Subjective Encounter Start Date: 05/11/18 Encounter Start Time: 13:15 Patient seen and examined for Colon mass. No new complaints. No overnight events - Objective Resuscitation Status: Resuscitation Status DNR:Do Not Resuscitate MAR Reviewed: Yes Vital Signs & Weight: Vital Signs (12 hours) Temp Pulse Resp BP Pulse Ox 05/11/18 20:00 98.9 F 91 18 135/72 95 Weight Admit Weight 181 lb Weight 181 lb 6.4 oz I&O: 05/10/18 05/11/18 05/12/18 06:59 06:59 06:59 Intake Total 3680 3040 600 Output Total 3 Balance 3677 3040 600 Result Diagrams: 05/12/18 05:19 05/12/18 04:11 Additional Labs: Accuchecks 05/11/18 05/11/18 05/11/18 21:23 16:43 11:36 POC Glucose 150 H 182 H 209 H 05/11/18 05:01 POC Glucose 308 H Phys Exam - Physical Examination Constitutional: NAD Respiratory: no wheezing, no rhonchi Cardiovascular: RRR, no rub Gastrointestinal: soft, non-tender Musculoskeletal: no edema Neurological: moves all 4 limbs Dx/Plan - Plan DVT proph w/SCDs IMPRESSION: 1. Near obstructing Colon Ca 2. Chronic diarrhea 3. Moderate protein calorie malnutrion 4. Obesity BMI 34.3/ HTN/ CAD / Electrolyte abn / DM - 1 / C diff antigen positive with toxin negative - no Rx needed per GI 5. Other issues per previous notes PLAN: Refusing diuretics Cont other meds as below AM labs Cont IV D5 NS - reduce rate to 50 ml/hr Cont to monitor Cont current meds as below Review of Systems - Review of Systems Respiratory: negative: Cough, Dry, Shortness of Breath, Hemoptysis, SOB with Excertion, Pleuritic Pain, Sputum, Wheezing Gastrointestinal: negative: Nausea, Vomiting, Abdominal Pain, Diarrhea, Constipation, Melena, Hematochezia, Other - Medications/Allergies Allergies/Adverse Reactions: Allergies Allergy/AdvReac Type Severity Reaction Status Date / Time Beta-Blockers Allergy Verified 05/06/18 00:24 (Beta-Adrenergic Bloc heparin Allergy Verified 05/06/18 00:24 Medications: Current Medications Hydrocodone Bitart/Acetaminophen ([place] 10/325) 1 tab PO BID PRN PRN Reason: Mild-Moderate Pain (1-5) Al Hydroxide/Mg Hydroxide (Maalox) 15 ml PO Q4H PRN PRN Reason: Heartburn or Indigestion Amlodipine Besylate (Norvasc) 10 mg PO DAILY [facility] Last Admin: 05/11/18 08:23 Dose: Not Given Aspirin (Ecotrin) 81 mg PO DAILY [facility] Last Admin: 05/11/18 08:14 Dose: 81 mg Atorvastatin Calcium (Lipitor) 40 mg PO DAILY [facility] Last Admin: 05/11/18 08:13 Dose: 40 mg Benzonatate (Tessalon) 100 mg PO Q4H PRN PRN Reason: Cough Bisacodyl (Dulcolax) 10 mg PO DAILYPRN PRN PRN Reason: Constipation Calcium Carbonate (Tums) 1,000 mg PO Q4H PRN PRN Reason: Heartburn or Indigestion Clonidine (Catapres) 0.1 mg PO Q4H PRN PRN Reason: Systolic BP > 160 Coenzyme Q10 (Coenzyme Q10) 200 mg PO DAILY [facility] Last Admin: 05/11/18 08:13 Dose: 200 mg Dextrose/Water (Dextrose 50%) 25 gm SLOW IVP PRN PRN PRN Reason: Hypoglycemia Enalapril Maleate (Vasotec) 20 mg PO BID [facility] Last Admin: 05/11/18 21:26 Dose: 20 mg Famotidine (Pepcid) 20 mg PO BID [facility] Last Admin: 05/11/18 21:27 Dose: 20 mg Finasteride (Proscar) 5 mg PO DAILY [facility] Last Admin: 05/11/18 08:14 Dose: 5 mg Furosemide (Lasix) 20 mg SLOW IVP DAILY [facility] Last Admin: 05/11/18 08:56 Dose: Not Given Glucagon (Glucagon) 1 mg IM PRN PRN PRN Reason: Hypoglycemia Guaifenesin (Robitussin Sf) 200 mg PO Q4H PRN PRN Reason: Cough Hydralazine HCl (Apresoline) 10 mg SLOW IVP Q4H PRN PRN Reason: Systolic BP > 170 Dextrose/Water (D5w) 1,000 mls @ 0 mls/hr IV .Q0M PRN PRN Reason: Hypoglycemia Potassium Chloride/Dextrose/Sod Cl (D5 0.9% Ns W/ 20 Meq Kcl) 1,000 mls @ 50 mls/hr IV .Q20H [facility] Last Admin: 05/11/18 12:40 Dose: Not Given Insulin Human Lispro (Humalog) 0 units SC .BEDTIME SLIDING SC PRN PRN Reason: Bedtime Correctional Scale Last Admin: 05/10/18 20:42 Dose: 4 unit Insulin Human Lispro (Humalog) 0 units SC .MILD SLIDING SCALE PRN PRN Reason: Mild Correctional Scale Last Admin: 05/11/18 05:20 Dose: 5 unit Insulin Human NPH (Humulin N) 10 unit SC QA-[facility] Last Admin: 05/11/18 08:14 Dose: 10 unit Iron/Minerals/Multivitamins (Theragran M) 1 tab PO DAILY [facility] Last Admin: 05/11/18 08:14 Dose: 1 tab Loratadine (Claritin) 10 mg PO DAILYPRN PRN PRN Reason: Sinus Symptoms Nitroglycerin (Nitrostat) 0.4 mg SL Q5MIN PRN PRN Reason: Chest Pain Nitroglycerin (Nitro-Bid 2% Ointment) 0.5 inch TOP Q8HR [facility] Last Admin: 05/11/18 21:25 Dose: 0.5 inch Ondansetron HCl (Zofran) 4 mg IVP Q6H PRN PRN Reason: Nausea/Vomiting Phosphorus (Kphos Neutral) 250 mg PO TID-[facility] Last Admin: 05/11/18 16:42 Dose: 250 mg Saccharomyces Boulardii (Florastor) 250 mg PO DAILY [facility] Last Admin: 05/11/18 08:14 Dose: 250 mg Senna (Senokot) 2 tab PO HSPRN PRN PRN Reason: Constipation Sodium Chloride (Flush - Normal Saline) 10 ml IVF Q12HR [facility] Last Admin: 05/11/18 21:28 Dose: Not Given Sodium Chloride (Flush - Normal Saline) 10 ml IVF PRN PRN PRN Reason: Saline Flush Tizanidine HCl (Zanaflex) 4 mg PO BID [facility] Last Admin: 05/11/18 21:26 Dose: 4 mg Tramadol HCl (Ultram) 50 mg PO Q4H PRN PRN Reason: Moderate to Severe Pain (6-10) Last Admin: 05/11/18 21:26 Dose: 50 mg Trazodone HCl (Desyrel) 50 mg PO HSPRN PRN PRN Reason: Insomnia Last Admin: 05/11/18 21:28 Dose: 50 mg
[2018-05-12 04:41] LABS: Anion Gap 9 mmol/L (10-20); BUN (Urea Nitrogen) 6 mg/dL (8.4-25.7); BUN/Creatinine Ratio 10.91; Calc. Creatinine Clearance 141 mL/min (70-130); Calcium 7.5 mg/dL (7.8-10.44); Carbon Dioxide 24 mmol/L (23-31); Chloride 105 mmol/L (98-107); Estimated GFR-MDRD Greater than 90; Glucose 182 mg/dL (83-110); Magnesium 1.5 mg/dL (1.6-2.6); Phosphorus 2.8 mg/dL (2.3-4.7); Potassium 3.6 mmol/L (3.5-5.1); Sodium 134 mmol/L (136-145)
[2018-05-12 05:41] LABS: #Eosinphils 0.2 thou/uL (0.0-0.7); #Lymphocytes 1.3 thou/uL (1.20-3.40); #Monocytes 0.9 thou/uL (0.11-0.59); #Neutrophils 8.7 thou/uL (1.40-6.50); %Basophils 0.2 % (0.0-1.0); %Eosinophils 1.8 % (0.0-10.0); %Lymphocytes 11.6 % (21.0-51.0); %Monocytes 7.8 % (0.0-10.0); %Neutrophils 78.5 % (42.0-75.0); Hemoglobin 9.5 g/dL (14.0-18.0); Mean Corpuscular HGB CONC 31.8 g/dL (32.0-36.0); Mean Corpuscular Hemoglobin 31.3 pg (27.0-31.0); Mean Corpuscular Volume 98.3 fL (78.0-98.0); Mean Platelet Volume 7.1 fL (7.4-10.4); Platelet Count 277 thou/uL (130-400); RBC Distribution Width 15.1 % (11.5-14.5); Red Blood Cell (RBC) Count 3.04 mill/uL (4.70-6.10); White Blood Cell (WBC) Count 11.1 thou/uL (4.8-10.8)
[2018-05-12] MEDS: Nitroglycerin 2% Ointment 1 INCH/1 GM Packet TOP SCH ×3 (06:23→20:56)
--- NOTE | 2018-05-12 07:31 | PDOC.GSPN ---
Surgery Progress Note: Subj - Subjective Patient reports: no new complaints Surgery Progress Note: Obj - Vital signs Vital signs: Vital Signs - Most Recent Temp Pulse Resp BP Pulse Ox 98.9 F 91 18 135/72 95 05/11/18 20:00 05/11/18 20:00 05/11/18 20:00 05/11/18 20:00 05/11/18 20:00 - Physical Exam General: no distress Cardiovascular: regular rate and rhythm Respiratory: clear to auscultation Abdomen: soft, nondistended Surgery Progress Note: Results - Labs Result Diagrams: 05/12/18 05:19 05/12/18 04:11 Lab results: Laboratory Results - last 24 hr 05/11/18 05/12/18 05/12/18 21:23 01:26 04:11 WBC RBC Hgb Hct MCV MCH MCHC RDW Plt Count MPV Neutrophils % Lymphocytes % Monocytes % Eosinophils % Basophils % Neutrophils # Lymphocytes # Monocytes # Eosinophils # Basophils # Sodium 134 L Potassium 3.6 Chloride 105 Carbon Dioxide 24 Anion Gap 9 L BUN 6 L Creatinine 0.55 L Estimated GFR (MDRD) Greater than 90 BUN/Creatinine Ratio 10.91 Glucose 182 H POC Glucose 150 H 166 H Calcium 7.5 L Phosphorus 2.8 Magnesium 1.5 L Albumin 2.0 L 05/12/18 05/12/18 05:19 05:56 WBC 11.1 H RBC 3.04 L Hgb 9.5 L Hct 29.9 L MCV 98.3 H MCH 31.3 H MCHC 31.8 L RDW 15.1 H Plt Count 277 MPV 7.1 L Neutrophils % 78.5 H Lymphocytes % 11.6 L Monocytes % 7.8 Eosinophils % 1.8 Basophils % 0.2 Neutrophils # 8.7 H Lymphocytes # 1.3 Monocytes # 0.9 H Eosinophils # 0.2 Basophils # 0.0 Sodium Potassium Chloride Carbon Dioxide Anion Gap BUN Creatinine Estimated GFR (MDRD) BUN/Creatinine Ratio Glucose POC Glucose 181 H Calcium Phosphorus Magnesium Albumin Surgery Progress Note: A/P - Problem (1) Colonic mass Current Visit: Yes Code(s): K63.9 - DISEASE OF INTESTINE, UNSPECIFIED Status : Acute - Plan Plan: Multiple in Sigmoid colon -plan sigmoid colectomy and colostomy . -try prep today with miralax
[2018-05-12] MEDS ORDERED: Polyethylene Glycol 3350 17 GM Packet PO SCH ×2 (08:00→12:00)
[2018-05-12] MEDS: Aspirin 81 mg Enteric Coated Tablet PO SCH (08:02)
[2018-05-12] MEDS: Furosemide 20 MG/2 ML VIAL SLOW IVP SCH (08:02)
[2018-05-12] MEDS: Famotidine 20 MG TAB PO SCH ×2 (08:02→20:56)
[2018-05-12] MEDS: tiZANidine HCl 4 MG TAB PO SCH ×2 (08:03→20:55)
[2018-05-12] MEDS: Ubidecarenone 50 MG CAP PO SCH (08:03)
[2018-05-12] MEDS: Multivitamin W/ Minerals 1 TAB PO SCH (08:03)
[2018-05-12] MEDS: Amlodipine 10 MG TAB PO SCH (08:03)
[2018-05-12] MEDS: NPH, Human Insulin Isophane 300 UNIT/3 ML VIAL SC SCH (08:03)
[2018-05-12] MEDS: Atorvastatin Calcium 40 MG TAB PO SCH (08:03)
[2018-05-12] MEDS: K-Phos Neutral 250 MG TAB PO SCH ×3 (08:03→16:31)
[2018-05-12] MEDS: Finasteride 5 MG TAB PO SCH (08:03)
[2018-05-12] MEDS: Saccharomyces boulardii 250 MG CAP PO SCH (08:03)
[2018-05-12] MEDS: D5 0.9% NS w/ 20 mEq KCl 1,000 ML IV SCH (08:04)
--- NOTE | 2018-05-12 09:12 | STRESS ---
Acquisition Time: 2018-05-08 13:44:51 Total Exercise Time: 00:01:00 Test Indications: SURGICAL CLEARANCE Medications: Protocol: LEXISCAN Max HR: 102 BPM 68% of Pred: 148 BPM Max BP: 130/060 mmHG Max Work Load: 1.0 METS RESTING EKG: NORMALL SINUS RHYTHM AT 96 BPM WITH COMPLETE RBBB AND FREQUENT PACS SYMPTOMS: DYSPNEA APPROPRIATE BP RESPONSE FOR LEXISCAN ECTOPY: NONE EKG STRESS: NO SIGNIFICANT CHANGES INTERPRETATION: AWAIT NUCLEAR IMAGES FOR DEFINITIVE DIAGNOSIS Confirmed by GENARO CHAUDHARY ([id number]), greeting card editor TYREL PERALTA ([id number]) on 05/12/2018 9:11:51 AM Referred By: Confirmed By:GENARO CHAUDHARY
[2018-05-12] MEDS ORDERED: Magnesium 2 GM/NS 0.9% 100 ML 2 GM in Premix Bag 1 BAG IVPB SCH (09:15)
[2018-05-12] MEDS ORDERED: Bisacodyl 5 MG TAB PO SCH (12:00)
[2018-05-12] MEDS: traMADol HCl 50 MG TAB PO PRN (13:01)
[2018-05-12] MEDS: Neomycin 500 mg Tablet PO SCH ×3 (15:59→18:13)
--- NOTE | 2018-05-12 21:22 | PDOC.PN ---
- Subjective Encounter Start Date: 05/12/18 Encounter Start Time: 12:00 Patient seen and examined for Colon mass. No new complaints. No overnight events - Objective Resuscitation Status: Resuscitation Status DNR:Do Not Resuscitate MAR Reviewed: Yes Vital Signs & Weight: Vital Signs (12 hours) Temp Pulse Resp BP BP Pulse Ox 05/12/18 20:55 128/68 05/12/18 20:46 98.8 F 107 H 18 127/68 95 Weight Admit Weight 181 lb Weight 181 lb 6.4 oz I&O: 05/11/18 05/12/18 05/13/18 06:59 06:59 06:59 Intake Total 3040 1320 360 Output Total 2 Balance 3040 1318 360 Result Diagrams: 05/12/18 05:19 05/13/18 04:43 Additional Labs: Accuchecks 05/12/18 05/12/18 05/12/18 16:32 11:10 05:56 POC Glucose 176 H 195 H 181 H 05/12/18 05/11/18 01:26 21:23 POC Glucose 166 H 150 H Phys Exam - Physical Examination Constitutional: NAD Respiratory: no wheezing, no rhonchi Cardiovascular: RRR, no rub Gastrointestinal: soft, non-tender, positive bowel sounds Dx/Plan - Plan DVT proph w/SCDs IMPRESSION: 1. Near obstructing Colon Ca 2. Chronic diarrhea 3. Moderate protein calorie malnutrion 4. Obesity BMI 34.3/ HTN/ CAD / Electrolyte abn / DM - 1 / C diff antigen positive with toxin negative - no Rx needed per GI 5. Other issues per previous notes PLAN: Refusing diuretics Patient is allergic to Heparin Cont other meds as below AM labs Cont IV D5 NS - reduce rate to 50 ml/hr due to poor appetite Cont to monitor Cont current meds as below Review of Systems - Review of Systems Respiratory: negative: Cough, Dry, Shortness of Breath, Hemoptysis, SOB with Excertion, Pleuritic Pain, Sputum, Wheezing Cardiovascular: negative: chest pain, palpitations, orthopnea, paroxysmal nocturnal dyspnea, edema, light headedness, other - Medications/Allergies Allergies/Adverse Reactions: Allergies Allergy/AdvReac Type Severity Reaction Status Date / Time Beta-Blockers Allergy Verified 05/06/18 00:24 (Beta-Adrenergic Bloc heparin Allergy Verified 05/06/18 00:24 Medications: Current Medications Hydrocodone Bitart/Acetaminophen ([place] 10/325) 1 tab PO BID PRN PRN Reason: Mild-Moderate Pain (1-5) Al Hydroxide/Mg Hydroxide (Maalox) 15 ml PO Q4H PRN PRN Reason: Heartburn or Indigestion Amlodipine Besylate (Norvasc) 10 mg PO DAILY [facility] Last Admin: 05/12/18 08:03 Dose: 10 mg Aspirin (Ecotrin) 81 mg PO DAILY [facility] Last Admin: 05/12/18 08:02 Dose: 81 mg Atorvastatin Calcium (Lipitor) 40 mg PO DAILY [facility] Last Admin: 05/12/18 08:03 Dose: 40 mg Benzonatate (Tessalon) 100 mg PO Q4H PRN PRN Reason: Cough Bisacodyl (Dulcolax) 10 mg PO DAILYPRN PRN PRN Reason: Constipation Calcium Carbonate (Tums) 1,000 mg PO Q4H PRN PRN Reason: Heartburn or Indigestion Clonidine (Catapres) 0.1 mg PO Q4H PRN PRN Reason: Systolic BP > 160 Coenzyme Q10 (Coenzyme Q10) 200 mg PO DAILY [facility] Last Admin: 05/12/18 08:03 Dose: 200 mg Dextrose/Water (Dextrose 50%) 25 gm SLOW IVP PRN PRN PRN Reason: Hypoglycemia Enalapril Maleate (Vasotec) 20 mg PO BID [facility] Last Admin: 05/12/18 20:55 Dose: 20 mg Famotidine (Pepcid) 20 mg PO BID [facility] Last Admin: 05/12/18 20:56 Dose: 20 mg Finasteride (Proscar) 5 mg PO DAILY [facility] Last Admin: 05/12/18 08:03 Dose: 5 mg Furosemide (Lasix) 20 mg SLOW IVP DAILY [facility] Last Admin: 05/12/18 08:02 Dose: 20 mg Glucagon (Glucagon) 1 mg IM PRN PRN PRN Reason: Hypoglycemia Guaifenesin (Robitussin Sf) 200 mg PO Q4H PRN PRN Reason: Cough Hydralazine HCl (Apresoline) 10 mg SLOW IVP Q4H PRN PRN Reason: Systolic BP > 170 Dextrose/Water (D5w) 1,000 mls @ 0 mls/hr IV .Q0M PRN PRN Reason: Hypoglycemia Potassium Chloride/Dextrose/Sod Cl (D5 0.9% Ns W/ 20 Meq Kcl) 1,000 mls @ 50 mls/hr IV .Q20H [facility] Last Admin: 05/12/18 08:04 Dose: Not Given Insulin Human Lispro (Humalog) 0 units SC .BEDTIME SLIDING SC PRN PRN Reason: Bedtime Correctional Scale Last Admin: 05/10/18 20:42 Dose: 4 unit Insulin Human Lispro (Humalog) 0 units SC .MILD SLIDING SCALE PRN PRN Reason: Mild Correctional Scale Last Admin: 05/11/18 05:20 Dose: 5 unit Insulin Human NPH (Humulin N) 10 unit SC QAM-[facility] Last Admin: 05/12/18 08:03 Dose: 10 unit Iron/Minerals/Multivitamins (Theragran M) 1 tab PO DAILY [facility] Last Admin: 05/12/18 08:03 Dose: 1 tab Loratadine (Claritin) 10 mg PO DAILYPRN PRN PRN Reason: Sinus Symptoms Nitroglycerin (Nitrostat) 0.4 mg SL Q5MIN PRN PRN Reason: Chest Pain Nitroglycerin (Nitro-Bid 2% Ointment) 0.5 inch TOP Q8HR [facility] Last Admin: 05/12/18 20:56 Dose: 0.5 inch Ondansetron HCl (Zofran) 4 mg IVP Q6H PRN PRN Reason: Nausea/Vomiting Phosphorus (Kphos Neutral) 250 mg PO TID-[facility] Last Admin: 05/12/18 16:31 Dose: 250 mg Saccharomyces Boulardii (Florastor) 250 mg PO DAILY [facility] Last Admin: 05/12/18 08:03 Dose: 250 mg Senna (Senokot) 2 tab PO HSPRN PRN PRN Reason: Constipation Sodium Chloride (Flush - Normal Saline) 10 ml IVF Q12HR [facility] Last Admin: 05/12/18 20:56 Dose: 10 ml Sodium Chloride (Flush - Normal Saline) 10 ml IVF PRN PRN PRN Reason: Saline Flush Tizanidine HCl (Zanaflex) 4 mg PO BID [facility] Last Admin: 05/12/18 20:55 Dose: 4 mg Tramadol HCl (Ultram) 50 mg PO Q4H PRN PRN Reason: Moderate to Severe Pain (6-10) Last Admin: 05/12/18 13:01 Dose: 50 mg Trazodone HCl (Desyrel) 50 mg PO HSPRN PRN PRN Reason: Insomnia Last Admin: 05/11/18 21:28 Dose: 50 mg
[2018-05-13] MEDS: D5 0.9% NS w/ 20 mEq KCl 1,000 ML IV SCH ×2 (01:32→22:30)
[2018-05-13] MEDS: Nitroglycerin 2% Ointment 1 INCH/1 GM Packet TOP SCH ×3 (05:27→21:03)
[2018-05-13 05:42] LABS: Anion Gap 12 mmol/L (10-20); BUN (Urea Nitrogen) 6 mg/dL (8.4-25.7); Calc. Creatinine Clearance 139 mL/min (70-130); Calcium 7.6 mg/dL (7.8-10.44); Carbon Dioxide 20 mmol/L (23-31); Chloride 104 mmol/L (98-107); Estimated GFR-MDRD Greater than 90; Glucose 231 mg/dL (83-110); Magnesium 1.5 mg/dL (1.6-2.6); Potassium 3.4 mmol/L (3.5-5.1); Sodium 133 mmol/L (136-145)
[2018-05-13] MEDS: NPH, Human Insulin Isophane 300 UNIT/3 ML VIAL SC SCH (07:25)
[2018-05-13] MEDS: K-Phos Neutral 250 MG TAB PO SCH ×3 (07:25→16:32)
[2018-05-13] MEDS: Amlodipine 10 MG TAB PO SCH (07:25)
[2018-05-13] MEDS: Famotidine 20 MG TAB PO SCH ×2 (07:26→21:01)
[2018-05-13] MEDS: Atorvastatin Calcium 40 MG TAB PO SCH (07:26)
[2018-05-13] MEDS: Aspirin 81 mg Enteric Coated Tablet PO SCH (07:26)
[2018-05-13] MEDS: Finasteride 5 MG TAB PO SCH (07:26)
[2018-05-13] MEDS: Furosemide 20 MG/2 ML VIAL SLOW IVP SCH (07:26)
[2018-05-13] MEDS: Multivitamin W/ Minerals 1 TAB PO SCH (07:27)
[2018-05-13] MEDS: tiZANidine HCl 4 MG TAB PO SCH ×2 (07:38→21:00)
[2018-05-13] MEDS: Saccharomyces boulardii 250 MG CAP PO SCH (07:38)
[2018-05-13] MEDS: Ubidecarenone 50 MG CAP PO SCH (07:39)
[2018-05-13] MEDS ORDERED: Bupivacaine/Epinephrine 0.25% 30 ML VIAL ONE (12:37)
[2018-05-13] MEDS ORDERED: Fentanyl 250 MCG/5 ML VIAL ONE (12:54)
[2018-05-13] MEDS ORDERED: Lidocaine 2% Jelly 5 ML TUBE ONE (12:54)
[2018-05-13] MEDS ORDERED: Ketamine 50 MG/ML VIAL ONE (12:54)
[2018-05-13] MEDS ORDERED: Albumin 5% 0 ML ONE (12:55)
[2018-05-13] MEDS ORDERED: Glycopyrrolate 0.2 MG/ML 5 ML SYRINGE ONE (13:50)
[2018-05-13] MEDS ORDERED: PROPOFOL 200 MG/20 ML VIAL ONE (13:50)
[2018-05-13] MEDS ORDERED: Dexamethasone 20 MG/5 ML VIAL ONE (13:50)
[2018-05-13] MEDS ORDERED: Ondansetron HCl/PF 4 MG/2 ML Vial ONE (13:50)
[2018-05-13] MEDS ORDERED: cefOXitin 2 GM VIAL ONE (14:01)
[2018-05-13] MEDS ORDERED: Magnesium Sulfate 2 GM in Sodium Chloride 0.9% 100 ML IVPB SCH (14:30)
[2018-05-13] MEDS ORDERED: Magnesium 2 GM/NS 0.9% 100 ML 2 GM in Premix Bag 1 BAG IVPB SCH (14:30)
[2018-05-13] MEDS ORDERED: SUGAMMADEX SODIUM 200 MG/2 ML VIAL ONE (14:45)
[2018-05-13] MEDS ORDERED: Ondansetron HCl/PF 4 MG/2 ML Vial IVP PRN (15:10)
[2018-05-13] MEDS ORDERED: Promethazine HCl 25 MG/ML VIAL SLOW IVP PRN (15:10)
[2018-05-13] MEDS ORDERED: Promethazine HCl 25 MG/ML VIAL IM PRN (15:10)
[2018-05-13] MEDS ORDERED: HYDROcodone/Acetaminophen 7.5/325 mg Tablet PO PRN ×2 (15:56)
[2018-05-13] MEDS ORDERED: Morphine 4 MG/ML VIAL SLOW IVP PRN (15:56)
[2018-05-13] MEDS: HumaLOG 300 UNITS/3 ML VIAL SC PRN (22:17)
--- NOTE | 2018-05-13 23:48 | PDOC.PN ---
- Subjective Encounter Start Date: 05/13/18 Encounter Start Time: 10:15 Patient seen and examined for Colon mass. No new complaints. No overnight events - Objective Resuscitation Status: Resuscitation Status DNR:Do Not Resuscitate MAR Reviewed: Yes Vital Signs & Weight: Vital Signs (12 hours) Temp Pulse Resp BP BP Pulse Ox 05/13/18 21:01 111/66 05/13/18 20:33 99 F 112 H 16 127/77 96 05/13/18 20:00 99 F 112 H 16 05/13/18 15:43 98.2 F 94 18 126/73 100 Weight Admit Weight 181 lb Weight 181 lb 6.4 oz I&O: 05/12/18 05/13/18 05/14/18 06:59 06:59 06:59 Intake Total 1320 1160 Output Total 2 Balance 1318 1160 Result Diagrams: 05/14/18 03:20 05/14/18 03:20 Additional Labs: Accuchecks 05/13/18 05/13/18 05/13/18 20:31 16:00 11:21 POC Glucose 314 H 348 H 289 H 05/13/18 04:34 POC Glucose 236 H Phys Exam - Physical Examination Constitutional: NAD Respiratory: no wheezing, no rhonchi Cardiovascular: RRR, no rub Gastrointestinal: soft Dx/Plan - Plan IMPRESSION: 1. Near obstructing Colon Ca 2. Chronic diarrhea 3. Moderate protein calorie malnutrion 4. Obesity BMI 34.3/ HTN/ CAD / Electrolyte abn- Hypomagnesemia/ DM - 1 / C diff antigen positive with toxin negative - no Rx needed per GI 5. Other issues per previous notes PLAN: For surgery today Replace Magnessium AM labs Cont IV D5 NS Cont to monitor Cont current meds as below Refusing diuretics Patient is allergic to Heparin Review of Systems - Medications/Allergies Allergies/Adverse Reactions: Allergies Allergy/AdvReac Type Severity Reaction Status Date / Time Beta-Blockers Allergy Verified 05/06/18 00:24 (Beta-Adrenergic Bloc heparin Allergy Verified 05/06/18 00:24 Medications: Current Medications Hydrocodone Bitart/Acetaminophen ([place] 7.5/325) 1 tab PO Q4H PRN PRN Reason: Mild Pain (1-3) Hydrocodone Bitart/Acetaminophen ([place] 7.5/325) 2 tab PO Q4H PRN PRN Reason: Moderate Pain (4-6) Al Hydroxide/Mg Hydroxide (Maalox) 15 ml PO Q4H PRN PRN Reason: Heartburn or Indigestion Amlodipine Besylate (Norvasc) 10 mg PO DAILY [facility] Last Admin: 05/13/18 07:25 Dose: Not Given Aspirin (Ecotrin) 81 mg PO DAILY [facility] Last Admin: 05/13/18 07:26 Dose: Not Given Atorvastatin Calcium (Lipitor) 40 mg PO DAILY [facility] Last Admin: 05/13/18 07:26 Dose: Not Given Benzonatate (Tessalon) 100 mg PO Q4H PRN PRN Reason: Cough Bisacodyl (Dulcolax) 10 mg PO DAILYPRN PRN PRN Reason: Constipation Calcium Carbonate (Tums) 1,000 mg PO Q4H PRN PRN Reason: Heartburn or Indigestion Clonidine (Catapres) 0.1 mg PO Q4H PRN PRN Reason: Systolic BP > 160 Coenzyme Q10 (Coenzyme Q10) 200 mg PO DAILY [facility] Last Admin: 05/13/18 07:39 Dose: Not Given Dextrose/Water (Dextrose 50%) 25 gm SLOW IVP PRN PRN PRN Reason: Hypoglycemia Enalapril Maleate (Vasotec) 20 mg PO BID [facility] Last Admin: 05/13/18 21:01 Dose: 20 mg Famotidine (Pepcid) 20 mg PO BID [facility] Last Admin: 05/13/18 21:01 Dose: 20 mg Finasteride (Proscar) 5 mg PO DAILY [facility] Last Admin: 05/13/18 07:26 Dose: Not Given Furosemide (Lasix) 20 mg SLOW IVP DAILY [facility] Last Admin: 05/13/18 07:26 Dose: Not Given Glucagon (Glucagon) 1 mg IM PRN PRN PRN Reason: Hypoglycemia Guaifenesin (Robitussin Sf) 200 mg PO Q4H PRN PRN Reason: Cough Hydralazine HCl (Apresoline) 10 mg SLOW IVP Q4H PRN PRN Reason: Systolic BP > 170 Dextrose/Water (D5w) 1,000 mls @ 0 mls/hr IV .Q0M PRN PRN Reason: Hypoglycemia Potassium Chloride/Dextrose/Sod Cl (D5 0.9% Ns W/ 20 Meq Kcl) 1,000 mls @ 50 mls/hr IV .Q20H [facility] Last Admin: 05/13/18 22:30 Dose: Not Given Insulin Human Lispro (Humalog) 0 units SC .BEDTIME SLIDING SC PRN PRN Reason: Bedtime Correctional Scale Last Admin: 05/13/18 22:17 Dose: 4 unit Insulin Human Lispro (Humalog) 0 units SC .MILD SLIDING SCALE PRN PRN Reason: Mild Correctional Scale Last Admin: 05/11/18 05:20 Dose: 5 unit Insulin Human NPH (Humulin N) 10 unit SC QAM-[facility] Last Admin: 05/13/18 07:25 Dose: Not Given Iron/Minerals/Multivitamins (Theragran M) 1 tab PO DAILY [facility] Last Admin: 05/13/18 07:27 Dose: Not Given Loratadine (Claritin) 10 mg PO DAILYPRN PRN PRN Reason: Sinus Symptoms Morphine Sulfate (Morphine) 2 mg SLOW IVP Q2H PRN PRN Reason: Mild-Moderate Pain (1-5) Morphine Sulfate (Morphine) 4 mg SLOW IVP Q2H PRN PRN Reason: Moderate to Severe Pain (6-10) Nitroglycerin (Nitrostat) 0.4 mg SL Q5MIN PRN PRN Reason: Chest Pain Nitroglycerin (Nitro-Bid 2% Ointment) 0.5 inch TOP Q8HR [facility] Last Admin: 05/13/18 21:03 Dose: 0.5 inch Ondansetron HCl (Zofran) 4 mg IVP Q6H PRN PRN Reason: Nausea/Vomiting Phosphorus (Kphos Neutral) 250 mg PO TID-[facility] Last Admin: 05/13/18 16:32 Dose: 250 mg Saccharomyces Boulardii (Florastor) 250 mg PO DAILY [facility] Last Admin: 05/13/18 07:38 Dose: Not Given Senna (Senokot) 2 tab PO HSPRN PRN PRN Reason: Constipation Sodium Chloride (Flush - Normal Saline) 10 ml IVF Q12HR [facility] Last Admin: 05/13/18 21:01 Dose: Not Given Sodium Chloride (Flush - Normal Saline) 10 ml IVF PRN PRN PRN Reason: Saline Flush Tizanidine HCl (Zanaflex) 4 mg PO BID [facility] Last Admin: 05/13/18 21:00 Dose: 4 mg Tramadol HCl (Ultram) 50 mg PO Q4H PRN PRN Reason: Moderate to Severe Pain (6-10) Last Admin: 05/12/18 13:01 Dose: 50 mg Trazodone HCl (Desyrel) 50 mg PO HSPRN PRN PRN Reason: Insomnia Last Admin: 05/11/18 21:28 Dose: 50 mg
[2018-05-14 05:26] LABS: #Eosinphils 0.1 thou/uL (0.0-0.7); #Lymphocytes 0.9 thou/uL (1.20-3.40); #Monocytes 0.9 thou/uL (0.11-0.59); #Neutrophils 13.3 thou/uL (1.40-6.50); %Basophils 0.1 % (0.0-1.0); %Eosinophils 0.3 % (0.0-10.0); %Lymphocytes 6.2 % (21.0-51.0); %Monocytes 5.6 % (0.0-10.0); %Neutrophils 87.7 % (42.0-75.0); Hemoglobin 9.9 g/dL (14.0-18.0); Mean Corpuscular HGB CONC 33.9 g/dL (32.0-36.0); Mean Corpuscular Hemoglobin 33.5 pg (27.0-31.0); Mean Corpuscular Volume 98.8 fL (78.0-98.0); Mean Platelet Volume 7.4 fL (7.4-10.4); Platelet Count 353 thou/uL (130-400); RBC Distribution Width 14.9 % (11.5-14.5); Red Blood Cell (RBC) Count 2.97 mill/uL (4.70-6.10); White Blood Cell (WBC) Count 15.1 thou/uL (4.8-10.8)
[2018-05-14 05:37] LABS: Anion Gap 11 mmol/L (10-20); BUN (Urea Nitrogen) 11 mg/dL (8.4-25.7); Calc. Creatinine Clearance 100 mL/min (70-130); Calcium 7.9 mg/dL (7.8-10.44); Carbon Dioxide 21 mmol/L (23-31); Chloride 104 mmol/L (98-107); Estimated GFR-MDRD Greater than 90; Glucose 343 mg/dL (83-110); Potassium 3.5 mmol/L (3.5-5.1); Sodium 132 mmol/L (136-145)
[2018-05-14] MEDS: Nitroglycerin 2% Ointment 1 INCH/1 GM Packet TOP SCH ×3 (05:57→21:05)
[2018-05-14] MEDS: HumaLOG 300 UNITS/3 ML VIAL SC PRN ×2 (06:00→21:08)
[2018-05-14] MEDS: Furosemide 20 MG/2 ML VIAL SLOW IVP SCH (08:16)
[2018-05-14] MEDS: NPH, Human Insulin Isophane 300 UNIT/3 ML VIAL SC SCH (08:16)
[2018-05-14] MEDS: tiZANidine HCl 4 MG TAB PO SCH ×2 (08:18→21:04)
[2018-05-14] MEDS: Ubidecarenone 50 MG CAP PO SCH (08:18)
[2018-05-14] MEDS: Atorvastatin Calcium 40 MG TAB PO SCH (08:18)
[2018-05-14] MEDS: Saccharomyces boulardii 250 MG CAP PO SCH (08:18)
[2018-05-14] MEDS: Multivitamin W/ Minerals 1 TAB PO SCH (08:18)
[2018-05-14] MEDS: K-Phos Neutral 250 MG TAB PO SCH ×3 (08:18→16:21)
[2018-05-14] MEDS: Aspirin 81 mg Enteric Coated Tablet PO SCH (08:18)
[2018-05-14] MEDS: Finasteride 5 MG TAB PO SCH (08:19)
[2018-05-14] MEDS: Amlodipine 10 MG TAB PO SCH (08:19)
[2018-05-14] MEDS: Famotidine 20 MG TAB PO SCH ×2 (08:19→21:04)
--- NOTE | 2018-05-14 13:06 | PRG ---
DATE OF SERVICE: 05/14/2018 SUBJECTIVE: Mr. Melo is adamant about wanting to go home. He said he is going home tomorrow a nd the other doctor said he could. He has no complaints. No nausea. He does not have much of an ap petite. He is afebrile. Vital signs are stable. His abdomen wounds are healing well. There is Lee mabond. No evidence of infection. There is a small amount of air and stool in his bag. ASSESSMENT: Metastatic left colon cancer with carcinomatosis, found on laparoscopy yesterday. PLAN: Would be to go home with hospice per the patient's wishes. We will start to arrange for those details.
--- NOTE | 2018-05-14 13:26 | PRG ---
DATE OF SERVICE: 05/14/2018 SUBJECTIVE: Mr. Melo is a postop day #1, attempted left colectomy, but he has carcinomatosis, so he underwent diverting loop colostomy. He is doing well today. He is tolerating the liquids with out difficulty. OBJECTIVE: He is afebrile. Vital signs are stable. Wounds are healing well. ASSESSMENT: Metastatic colon cancer with carcinomatosis. PLAN: Family and patient are interested in hospice. We will arrange for that. He can be discharged anytime.
--- NOTE | 2018-05-14 14:21 | PQF ---
CLINICAL DOCUMENTATION IMPROVEMENT CLARIFICATION FORM: ICD-10 Updated PLEASE DO AN ADDENDUM TO THE PROGRESS NOTE WITH ANY DOCUMENTATION UPDATES OR ADDITIONS AND CARRY THROUGH TO DC SUMMARY. THANK YOU. DATE: 05/14/18 ATTN : DR. MENDOZA Please exercise your independent, professional judgment in responding to the clarification form. Clinical indicators are provided on the bottom of this form for your review Please check appropriate box(s): [ ] Hemiplegia Specify: [ ] Non dominant side [ ] Dominant side Status: [ ] Complete [ ] Incomplete [ ] Paraplegia Specify: [ ] Non dominant side [ ] Dominant side Status: [ ] Complete [ ] Incomplete [ ] Quadriplegia [ ] Functional Quadriplegia (specify underlying cause) [ ] Weakness (please specify anatomical area) Specify: [ ] Non dominant side [ ] Dominant side [ ] Other diagnosis [ ] Unable to determine In addition, please specify: Present on Admission (POA): [ ] Yes [ ] No [ ] Unable to determine CLINICAL INDICATORS - SIGNS / SYMPTOMS / LABS H&P 05/06: "CURRENTLY BEDBOUND" NURSES NOTE 05/05: "TOTAL ASSIST" RISKS: H/O CVA TREATMENT: TOTAL ASSISTANCE PER NURSING (NOTE 05/05) (This form is maintained as a part of the permanent medical record) 2014 [employer]. All Rights Reserved SILVESTRE [email or web address] Office: [phone] LAURA
[2018-05-14] MEDS: D5 0.9% NS w/ 20 mEq KCl 1,000 ML IV SCH (21:04)
[2018-05-14] MEDS: traMADol HCl 50 MG TAB PO PRN (21:05)
--- NOTE | 2018-05-14 21:35 | PDOC.PN ---
- Subjective Encounter Start Date: 05/14/18 Encounter Start Time: 10:30 Patient seen and examined for Colon mass. No new complaints. No overnight events - Objective Resuscitation Status: Resuscitation Status DNR:Do Not Resuscitate MAR Reviewed: Yes Vital Signs & Weight: Vital Signs (12 hours) Temp Pulse Resp BP BP Pulse Ox 05/14/18 21:04 98.3 F 107 H 16 109/65 109/65 91 L 05/14/18 19:54 98.5 F 105 H 20 Weight Admit Weight 181 lb Weight 181 lb 6.4 oz I&O: 05/13/18 05/14/18 05/15/18 06:59 06:59 06:59 Intake Total 1160 1000 1080 Output Total 500 Balance 6966 212 7594 Result Diagrams: 05/14/18 03:20 05/14/18 03:20 Additional Labs: Accuchecks 05/14/18 05/14/18 05/14/18 16:09 11:24 03:55 POC Glucose 272 H 280 H 358 H 05/13/18 20:31 POC Glucose 314 H Phys Exam - Physical Examination Constitutional: NAD Respiratory: no wheezing, no rhonchi Cardiovascular: RRR, no rub Gastrointestinal: soft Colostomy + Psychiatric: A&O x 3 Dx/Plan - Plan DVT proph w/SCDs IMPRESSION: 1. Near obstructing Metastatic Colon Ca 2. Chronic diarrhea 3. Moderate protein calorie malnutrion 4. Obesity BMI 34.3/ HTN/ CAD / Electrolyte abn- Hypomagnesemia/ DM - 1 / C diff antigen positive with toxin negative - no Rx needed per GI / Functional quadriplegia due to CVA in the past - present on admission 5. Other issues per previous notes PLAN: Hospice eval Cont supportive care Cont IV D5 NS Cont current meds as below Patient is allergic to Heparin Review of Systems - Review of Systems Constitutional: negative: fever, chills, sweats, weakness, malaise, other Respiratory: negative: Cough, Dry, Shortness of Breath, Hemoptysis, SOB with Excertion, Pleuritic Pain, Sputum, Wheezing - Medications/Allergies Allergies/Adverse Reactions: Allergies Allergy/AdvReac Type Severity Reaction Status Date / Time Beta-Blockers Allergy Verified 05/06/18 00:24 (Beta-Adrenergic Bloc heparin Allergy Verified 05/06/18 00:24 Medications: Current Medications Hydrocodone Bitart/Acetaminophen ([place] 7.5/325) 1 tab PO Q4H PRN PRN Reason: Mild Pain (1-3) Hydrocodone Bitart/Acetaminophen ([place] 7.5/325) 2 tab PO Q4H PRN PRN Reason: Moderate Pain (4-6) Last Admin: 05/14/18 16:21 Dose: 2 tab Al Hydroxide/Mg Hydroxide (Maalox) 15 ml PO Q4H PRN PRN Reason: Heartburn or Indigestion Amlodipine Besylate (Norvasc) 10 mg PO DAILY [facility] Last Admin: 05/14/18 08:19 Dose: 10 mg Aspirin (Ecotrin) 81 mg PO DAILY [facility] Last Admin: 05/14/18 08:18 Dose: 81 mg Atorvastatin Calcium (Lipitor) 40 mg PO DAILY [facility] Last Admin: 05/14/18 08:18 Dose: 40 mg Benzonatate (Tessalon) 100 mg PO Q4H PRN PRN Reason: Cough Bisacodyl (Dulcolax) 10 mg PO DAILYPRN PRN PRN Reason: Constipation Calcium Carbonate (Tums) 1,000 mg PO Q4H PRN PRN Reason: Heartburn or Indigestion Clonidine (Catapres) 0.1 mg PO Q4H PRN PRN Reason: Systolic BP > 160 Coenzyme Q10 (Coenzyme Q10) 200 mg PO DAILY [facility] Last Admin: 05/14/18 08:18 Dose: 200 mg Dextrose/Water (Dextrose 50%) 25 gm SLOW IVP PRN PRN PRN Reason: Hypoglycemia Enalapril Maleate (Vasotec) 20 mg PO BID [facility] Last Admin: 05/14/18 21:04 Dose: 20 mg Famotidine (Pepcid) 20 mg PO BID [facility] Last Admin: 05/14/18 21:04 Dose: 20 mg Finasteride (Proscar) 5 mg PO DAILY [facility] Last Admin: 05/14/18 08:19 Dose: 5 mg Furosemide (Lasix) 20 mg SLOW IVP DAILY [facility] Last Admin: 05/14/18 08:16 Dose: 20 mg Glucagon (Glucagon) 1 mg IM PRN PRN PRN Reason: Hypoglycemia Guaifenesin (Robitussin Sf) 200 mg PO Q4H PRN PRN Reason: Cough Hydralazine HCl (Apresoline) 10 mg SLOW IVP Q4H PRN PRN Reason: Systolic BP > 170 Dextrose/Water (D5w) 1,000 mls @ 0 mls/hr IV .Q0M PRN PRN Reason: Hypoglycemia Potassium Chloride/Dextrose/Sod Cl (D5 0.9% Ns W/ 20 Meq Kcl) 1,000 mls @ 50 mls/hr IV .Q20H [facility] Last Admin: 05/14/18 21:04 Dose: Not Given Insulin Human Lispro (Humalog) 0 units SC .BEDTIME SLIDING SC PRN PRN Reason: Bedtime Correctional Scale Last Admin: 05/14/18 21:08 Dose: 5 unit Insulin Human Lispro (Humalog) 0 units SC .MILD SLIDING SCALE PRN PRN Reason: Mild Correctional Scale Last Admin: 05/14/18 06:00 Dose: 6 unit Insulin Human NPH (Humulin N) 10 unit SC QAM-[facility] Last Admin: 05/14/18 08:16 Dose: 10 unit Iron/Minerals/Multivitamins (Theragran M) 1 tab PO DAILY [facility] Last Admin: 05/14/18 08:18 Dose: 1 tab Loratadine (Claritin) 10 mg PO DAILYPRN PRN PRN Reason: Sinus Symptoms Morphine Sulfate (Morphine) 2 mg SLOW IVP Q2H PRN PRN Reason: Mild-Moderate Pain (1-5) Morphine Sulfate (Morphine) 4 mg SLOW IVP Q2H PRN PRN Reason: Moderate to Severe Pain (6-10) Nitroglycerin (Nitrostat) 0.4 mg SL Q5MIN PRN PRN Reason: Chest Pain Nitroglycerin (Nitro-Bid 2% Ointment) 0.5 inch TOP Q8HR [facility] Last Admin: 05/14/18 21:05 Dose: 0.5 inch Ondansetron HCl (Zofran) 4 mg IVP Q6H PRN PRN Reason: Nausea/Vomiting Phosphorus (Kphos Neutral) 250 mg PO TID-[facility] Last Admin: 05/14/18 16:21 Dose: 250 mg Saccharomyces Boulardii (Florastor) 250 mg PO DAILY [facility] Last Admin: 05/14/18 08:18 Dose: 250 mg Senna (Senokot) 2 tab PO HSPRN PRN PRN Reason: Constipation Sodium Chloride (Flush - Normal Saline) 10 ml IVF Q12HR [facility] Last Admin: 05/14/18 21:04 Dose: 10 ml Sodium Chloride (Flush - Normal Saline) 10 ml IVF PRN PRN PRN Reason: Saline Flush Tizanidine HCl (Zanaflex) 4 mg PO BID [facility] Last Admin: 05/14/18 21:04 Dose: 4 mg Tramadol HCl (Ultram) 50 mg PO Q4H PRN PRN Reason: Moderate to Severe Pain (6-10) Last Admin: 05/14/18 21:05 Dose: 50 mg Trazodone HCl (Desyrel) 50 mg PO HSPRN PRN PRN Reason: Insomnia Last Admin: 05/11/18 21:28 Dose: 50 mg
[2018-05-15] MEDS: Nitroglycerin 2% Ointment 1 INCH/1 GM Packet TOP SCH (06:10)
[2018-05-15] MEDS: HumaLOG 300 UNITS/3 ML VIAL SC PRN (06:16)
[2018-05-15 08:02] VITALS: TEMP 97.7
[2018-05-15] MEDS: NPH, Human Insulin Isophane 300 UNIT/3 ML VIAL SC SCH (09:09)
[2018-05-15] MEDS: traMADol HCl 50 MG TAB PO PRN (10:12)
[2018-05-15] MEDS: Atorvastatin Calcium 40 MG TAB PO SCH (11:48)
[2018-05-15] MEDS: K-Phos Neutral 250 MG TAB PO SCH ×2 (11:48→12:06)
[2018-05-15] MEDS: Amlodipine 10 MG TAB PO SCH (11:48)
[2018-05-15] MEDS: Aspirin 81 mg Enteric Coated Tablet PO SCH (11:48)
[2018-05-15 11:49] VITALS: BP 109/65
[2018-05-15] MEDS: Ubidecarenone 50 MG CAP PO SCH (11:49)
[2018-05-15] MEDS: Furosemide 20 MG/2 ML VIAL SLOW IVP SCH (11:49)
[2018-05-15] MEDS: Multivitamin W/ Minerals 1 TAB PO SCH (11:49)
[2018-05-15] MEDS: tiZANidine HCl 4 MG TAB PO SCH (11:49)
[2018-05-15] MEDS: Saccharomyces boulardii 250 MG CAP PO SCH (11:49)
[2018-05-15] MEDS: Finasteride 5 MG TAB PO SCH (11:49)
[2018-05-15] MEDS: Famotidine 20 MG TAB PO SCH (11:49)
--- NOTE | 2018-05-15 15:17 | DIS ---
DATE OF DISCHARGE: 05/15/2018 DISCHARGE DISPOSITION: Home with hospice. The patient was seen on the day of discharge, denies any new complaints. BRIEF HOSPITAL COURSE: The patient is a 72-year-old male who was admitted on 05/06/2018 with abdomin al distention as well as worsening diarrhea. Please refer to the history and physical dated 05/06/[address] Treasure Ness for further details. The patient was admitted to the hospital with a diagnosis of abdominal pain. CT scan of the abdomen and pelvis with contrast showed colonic mass. The patient was seen by multiple consultants including GI, General Surgery as well as Infectious Disease, Dr. Holguin. Colonoscopy was attempted. However, the preparation was extremely poor. It showed a polypoid mass with ulceration and necrosis in the re ctum. There was also a near obstructing mass at about 30 cm. Multiple biopsies were done. The biop sy report showed high grade dysplasia. On 05/13/2018, patient underwent a laparoscopy. He was found to have peritoneal carcinomatosis. A diverting loop colostomy was done. He will be discharged home with Hospice per patient request. FINAL DIAGNOSES: 1. Near obstructing metastatic colon cancer. 2. Chronic diarrhea. 3. Moderate protein calorie malnutrition. 4. Obesity with a body mass index 34.3. 5. Hypertension. 6. Coronary artery disease. 7. Multiple electrolyte abnormalities including hypomagnesemia, hypokalemia, hyponatremia, and hypop hosphatemia. 8. Functional quadriplegia due to cerebrovascular accident in the past, present on admission. 9. Clostridium difficile antigen positive, toxin negative. No treatment needed per Gastroenterology . 10. Diabetes mellitus type 1. 11. Coronary artery disease, status post myocardial infarction. 12. Hypertension. 13. Dyslipidemia. 14. Chronic pain syndrome. 15. Gastroesophageal reflux disease. 16. Chronic anemia.
--- NOTE | 2018-05-18 15:25 | OP ---
DATE OF PROCEDURE: 05/13/2018 PREOPERATIVE DIAGNOSIS: Left colon cancer. POSTOPERATIVE DIAGNOSES: Left colon cancer with carcinomatosis. SURGEON: Nahun Maddox M.D. PROCEDURE PERFORMED: Diagnostic laparoscopy, biopsy of peritoneum loop colostomy transverse colon. SURGEON: Nahun Maddox M.D. ANESTHESIA: General. ESTIMATED BLOOD LOSS: Minimal. COMPLICATIONS: None. SPECIMEN: Multiple peritoneal biopsies were performed for what appeared to be metastatic carcinomato sis. Decision made to not resect but only divert. TECHNIQUE: The patient was taken to the operating room and placed supine on the table. After genera l anesthetic was obtained, a Howard was placed. The abdomen shaved, prepped, and draped in a sterile fashion. Straight incision made above the umbilicus. Cautery was used to dissect down to and score the fascia. Abdominal cavity entered bluntly using a Shani clamp, 5 mm trocar was placed and high-fl ow pneumoperitoneum was obtained. Two left abdominal 5 more ports were placed under direct camera vi sualization. The patient was found to have diffuse carcinomatosis, especially the posterior peritone al lining. Multiple biopsies of this were obtained. The patient had locally invasive disease in the left lower quadrant. Decision was made that in the setting of carcinomatosis that resection would n ot be performed at this time. The distal transverse colon was very floppy, able to be brought up to the posterior abdominal wall under no tension. Ellipse of skin was taken out in the left upper quadr ant well below the costal margin. A cruciate incision was made in the fascia with the abdomen bloat up laparoscopic a small hole was made in the peritoneum and a [place] was used to reach in and grabbe d the transverse colon keep it in its proper orientation, pulled up through this defect. All ports w ere then removed and pneumoperitoneum was let down. PDS was used to close the fascia. The small fas cial defect at the supraumbilical incision. All incisions are closed using 3-0 Vicryl, 4-0 Monocryl, and Dermabond. The colostomy was then matured in a loop fashion with the loop bar placed using 3-0 Vicryl. A colostomy device was placed. The patient was en route to recovery in stable condition. A ll instrument counts, needle counts, lap counts were correct.
== END 2018-05-15 12:52 | disposition hospice, home (50) | DRG 329 ==
LOC: ERS 16:41 → T4-B 05-06 00:08
PROVIDERS: ADMIT Family Medicine; ATTEND Family Medicine
PROC: 0DBN8ZX Excision of Sigmoid Colon, Via Natural or Artificial Opening Endoscopic, Diagnostic (ICD-10-PCS; principal; 2018-05-07)
PROC: 0D1L4Z4 Bypass Transverse Colon to Cutaneous, Percutaneous Endoscopic Approach (ICD-10-PCS; 2018-05-13)
PROC: 0WB Anatomical Regions, General, Excision (ICD-10-PCS; 2018-05-13)
DX: C18.6 Malignant neoplasm of descending colon (principal); R53.2 Functional quadriplegia; C78.6 Secondary malignant neoplasm of retroperitoneum and peritoneum; E44.0 Moderate protein-calorie malnutrition; E87.1 Hypo-osmolality and hyponatremia; R19.7 Diarrhea, unspecified; E10.9 Type 1 diabetes mellitus without complications; Z74.01 Bed confinement status; I25.10 Atherosclerotic heart disease of native coronary artery without angina pectoris; E78.5 Hyperlipidemia, unspecified; I10 Essential (primary) hypertension; K21.9 Gastro-esophageal reflux disease without esophagitis; G89.29 Other chronic pain; Z95.1 Presence of aortocoronary bypass graft; Z96.653 Presence of artificial knee joint, bilateral; F41.9 Anxiety disorder, unspecified; Z66 Do not resuscitate; E87.6 Hypokalemia; D72.829 Elevated white blood cell count, unspecified; D64.9 Anemia, unspecified; I25.5 Ischemic cardiomyopathy; Z68.34 Body mass index [BMI] 34.0-34.9, adult; E66.9 Obesity, unspecified; E83.42 Hypomagnesemia; E83.39 Other disorders of phosphorus metabolism; I69.865 Other paralytic syndrome following other cerebrovascular disease, bilateral; G89.4 Chronic pain syndrome
CPT/HCPCS: 36415; 36416; 71045; 74177; 78452; 80048; 80053; 80069; 82378; 82607; 82728; 82746; 83540; 83630; 83690; 83735; 84100; 85025; 85046; 87045; 87046; 87081; 87324; 87449; 87493; 87899; 88305; 88341; 88342; 93005; 93017; 93306; 96361; 96374; A4216; A9500; G8978-GP-CM; G8979-GP-CL; G8987-GO-CM; G8988-GO-CM; G8989-GO-CM; G8996-GN-CJ; G8997-GN-CJ; J0456; J0694; J1100; J1815; J1885; J1940; J2270; J2405; J2704; J2785; J3010; J3475; J3480; J7050; P9045; S0028